=== PATIENT | female | born 1945 | race Caucasian/White ===

== ENCOUNTER 2016-07-07 07:58 | Day surgery (SDC) | payer MEDICARE, OTHER ==
[~2016-07-07 07:58] MED LIST: Acetaminophen TAB* 325 MG PO PRN; Buffered Lidocaine 1% SYRIN* 3 ML/SYR SYRINGE INTRADERM ONE; Cyclopentolate 1% OPTH.SOL* 2 ML BTL ONE; Flurbiprofen 0.03% OPTH.SOL* 2.5 ML BTL ONE; Lidocaine 1% MPF* 2 ML VIAL ONE; Neomycin/Polymy/Dex OPHTH.OIN* 3.5 GM ONE; Phenylephrine 2.5% OPTH.SOL* 2 ML BTL ONE; Povidone Iodine 5% OPTH* 30 ML BTL ONE; Tetracaine 0.5% OPTH.SOL 4 ML* 1 DROP BTL ONE; Tropicamide 1% OPTH.SOL* BTL ONE; acetaZOLAMIDE TAB* 250 MG ONE
[2016-07-07] MEDS ORDERED: fentaNYL* 50 MCG/ML 2 ML VIAL (100 MCG VIAL) ONE (09:22)
[2016-07-07] MEDS ORDERED: Midazolam* 1 MG/ML 2 ML VIAL (2 MG) ONE ×2 (09:22→09:38)
[2016-07-07] MEDS ORDERED: Labetalol IV* 5 MG/ML 20 ML VIAL ONE (09:48)
[2016-07-07 10:09] VITALS: BP 135/82
--- NOTE | 2016-07-08 05:02 | OP ---
DATE OF OPERATION: 07/07/16 - [facility] DATE OF : 45 SURGEON: Pop Jackson MD ANESTHESIOLOGIST: Niranjan Wayne DO ANESTHESIA: Monitored anesthesia care. PRE-OP DIAGNOSIS: Cataract of the right eye. POST-OP DIAGNOSIS: Cataract of the right eye. OPERATIVE PROCEDURE: Cataract extraction of the right eye. IMPLANTS: SN60AT 31.0 diopter lens to the right eye. COMPLICATIONS: None. DESCRIPTION OF PROCEDURE: The patient was given phenylephrine 2.5% and cyclopentolate 1% eyedrops to the operative eye in the preoperative area. The patient was brought to the operating room, where a time-out was taken to identify the correct patient, site, and side of the surgery. The patient's right eye was prepped and draped in the usual sterile fashion with 5% Betadine. A second time- out was taken to verify the correct patient, site, and side of the surgery and correct lens selection. A lid speculum was placed to the right eye. A 1 mm paracentesis blade was used to make a clear corneal incision in the superotemporal position. Preservative-free 1% lidocaine was injected into the anterior chamber. DisCoVisc was then injected in the anterior chamber. A 2.75 mm keratome blade was used to make a triplanar incision at the inferotemporal position. A cystotome was used to initiate a capsulorrhexis, which was completed with Utrata forceps in a continuous and curvilinear manner. Hydrodissection of the lens was then performed with BSS on a cannula. The lens could be spun in the capsular bag. The phacoemulsification handpiece was then used with a [id number] technique to remove the nucleus in its entirety with 10.74 CDE. The I/A handpiece was then used to remove the residual cortical lens material. DisCoVisc was then injected to inflate the capsular bag. The planned SN60AT 31.0 diopter lens was then injected into the capsular bag. The residual DisCoVisc was then removed from the eye with the I/A handpiece. The corneal incisions were then hydrated and no leaks occurred at physiologic pressure around 20 mmHg per palpation. The lid speculum was then removed and drapes removed. Maxitrol ointment was then placed on the surface of the operative eye. An adhesive patch and shield were then placed on the operative eye. The patient was taken to the postoperative area in stable condition. [id number]/[facility] #: [id number] [facility]ITALMichael
== END 2016-07-07 10:20 | disposition home or self-care (01) ==
LOC: OREAST 07:58
PROVIDERS: ATTEND Student in an Organized Health Care Education/Training Program
DX: H25.11 Age-related nuclear cataract, right eye (principal); E11.9 Type 2 diabetes mellitus without complications; H50.10 Unspecified exotropia; H53.032 Strabismic amblyopia, left eye; J44.9 Chronic obstructive pulmonary disease, unspecified; I10 Essential (primary) hypertension; Z87.891 Personal history of nicotine dependence
CPT/HCPCS: A9270-GY; J2250; J3010; V2632

== ENCOUNTER 2016-07-14 07:09 | Day surgery (SDC) | payer MEDICARE, OTHER ==
[~2016-07-14 07:09] MED LIST changes: -Cyclopentolate 1% OPTH.SOL* 2 ML BTL ONE; -Flurbiprofen 0.03% OPTH.SOL* 2.5 ML BTL ONE; -Lidocaine 1% MPF* 2 ML VIAL ONE; -Neomycin/Polymy/Dex OPHTH.OIN* 3.5 GM ONE; -Phenylephrine 2.5% OPTH.SOL* 2 ML BTL ONE; -Povidone Iodine 5% OPTH* 30 ML BTL ONE; -Tetracaine 0.5% OPTH.SOL 4 ML* 1 DROP BTL ONE; -Tropicamide 1% OPTH.SOL* BTL ONE; -acetaZOLAMIDE TAB* 250 MG ONE
[2016-07-14] MEDS ORDERED: Midazolam* 1 MG/ML 2 ML VIAL (2 MG) ONE ×2 (08:07→08:56)
[2016-07-14] MEDS ORDERED: fentaNYL* 50 MCG/ML 2 ML VIAL (100 MCG VIAL) ONE (08:12)
[2016-07-14 09:32] VITALS: BP 144/88
[2016-07-14] MEDS ORDERED: Phenylephrine 2.5% OPTH.SOL* 2 ML BTL ONE (14:47)
[2016-07-14] MEDS ORDERED: Lidocaine 1% MPF* 2 ML VIAL ONE (14:47)
[2016-07-14] MEDS ORDERED: acetaZOLAMIDE TAB* 250 MG ONE (14:47)
[2016-07-14] MEDS ORDERED: Tetracaine 0.5% OPTH.SOL 4 ML* 1 DROP BTL ONE (14:47)
[2016-07-14] MEDS ORDERED: Povidone Iodine 5% OPTH* 30 ML BTL ONE (14:47)
[2016-07-14] MEDS ORDERED: Neomycin/Polymy/Dex OPHTH.OIN* 3.5 GM ONE (14:47)
[2016-07-14] MEDS ORDERED: Cyclopentolate 1% OPTH.SOL* 2 ML BTL ONE (14:47)
[2016-07-14] MEDS ORDERED: Flurbiprofen 0.03% OPTH.SOL* 2.5 ML BTL ONE (14:47)
[2016-07-14] MEDS ORDERED: Tropicamide 1% OPTH.SOL* BTL ONE (14:47)
--- NOTE | 2016-07-15 00:59 | OP ---
DATE OF OPERATION: 07/14/16 - [facility] DATE OF : 45 SURGEON: Pop Jackson MD ANESTHESIOLOGIST: Dr. Holbrook ANESTHESIA: Monitored anesthesia care. PRE-OP DIAGNOSIS: Cataract, left eye with amblyopia. POST-OP DIAGNOSIS: Cataract, left eye with amblyopia. OPERATIVE PROCEDURE: Cataract extraction, left eye. IMPLANTS: SN60AT 33.0 diopter lens to the left eye. COMPLICATIONS: None. DESCRIPTION OF PROCEDURE: The patient was given phenylephrine 2.5% and cyclopentolate 1% eye drops to the operative eye in the preoperative area. The patient was brought to the operating room, where a time-out was taken to identify the correct patient, site, and side of the surgery. The patient's left eye was prepped and draped in the usual sterile fashion with 5% Betadine. A second time- out was taken to verify the correct patient, site, and side of the surgery and correct lens selection. A lid speculum was placed to the left eye. A 1 mm paracentesis blade was used to make a clear corneal incision in the inferotemporal position. Preservative-free 1% lidocaine was injected into the anterior chamber. DisCoVisc was then injected into the anterior chamber. A 2.75 mm keratome blade was used to make a triplanar incision at the superotemporal position. A cystotome was used to initiate a capsulorrhexis, which was completed with Utrata forceps in a continuous and curvilinear manner. Hydrodissection of the lens was then performed with BSS on a cannula. The lens could be spun in the capsular bag. The phacoemulsification handpiece was then used with a [id number] technique to remove the nucleus in its entirety with 15.29 CDE. The I/A handpiece was then used to remove the residual cortical lens material. DisCoVisc was then injected to inflate the capsular bag. The incision was enlarged to accommodate the B cartridge. The planned SN60AT 33.0 diopter lens was then injected into the capsular bag. The residual DisCoVisc was then removed from the eye with the I/A handpiece. The corneal incisions were then hydrated and no leaks occurred at physiologic pressure around 20 mmHg per palpation. The lid speculum was then removed and drapes removed. Maxitrol ointment was then placed on the surface of the operative eye. An adhesive patch and shield were then placed on the operative eye. The patient was taken to the postoperative area in stable condition. [id number]/[facility] [facility] #: [id number] PHILL
== END 2016-07-14 09:50 | disposition home or self-care (01) ==
LOC: OREAST 07:09
PROVIDERS: ATTEND Student in an Organized Health Care Education/Training Program
DX: H25.12 Age-related nuclear cataract, left eye (principal); H53.032 Strabismic amblyopia, left eye; H50.10 Unspecified exotropia; J44.9 Chronic obstructive pulmonary disease, unspecified; E11.9 Type 2 diabetes mellitus without complications; Z87.891 Personal history of nicotine dependence; I10 Essential (primary) hypertension
CPT/HCPCS: A9270-GY; J2250; J3010; V2632

== ENCOUNTER 2016-10-27 12:46 | Emergency (ER) | payer MEDICARE, OTHER ==
[2016-10-27] MEDS ORDERED: Metoclopramide IV* 5 MG/ML 2 ML VIAL IV ONE (14:34)
[2016-10-27] MEDS ORDERED: NS 0.9% 1000 ML* 1,000 ML IV ONE (14:34)
--- NOTE | 2016-10-27 14:57 | RAD ---
HISTORY: Lower abdominal pain COMPARISONS: None VIEWS: Frontal views of the abdomen. FINDINGS: BOWEL: There is a nonobstructive bowel gas pattern. There is a moderate amount of stool within the colon. CALCULI: There are no abnormal calculi. BONES AND SOFT TISSUES: The patient is status post spinal fusion. OTHER FINDINGS: The lung bases are clear. There is no subphrenic gas. IMPRESSION: NONOBSTRUCTIVE BOWEL GAS PATTERN
[2016-10-27 15:42] LABS: Hematocrit 32 % (35-47); Hemoglobin 10.4 g/dl (12.0-16.0); Mean Corpuscular HGB Conc 33 g/dl (31-36); Mean Corpuscular Hemoglobin 25 pg (27-31); Mean Corpuscular Volume 77 fL (80-97); Mean Platelet Volume 7 um3 (7.4-10.4); Red Blood Count 4.13 10^6/ul (4.0-5.4); Red Cell Distribution Width 19 % (10.5-15); White Blood Count 7.7 10^3/ul (3.5-10.8)
[2016-10-27 16:16] LABS: Albumin 3.3 g/dL (3.2-5.2); BUN/Creatinine Ratio 7.7 (8-20); C Reactive Protein 15.3 mg/L (< 5.00); Calcium 8.8 mg/dL (8.6-10.3); EGFR African American 78.4 (>60); EGFR Non-African American 60.9 (>60); Globulin 3.3 g/dL (2-4); Potassium 3.1 mmol/L (3.5-5.0); Total Bilirubin 0.5 mg/dL (0.2-1.0); Total Protein 6.6 g/dL (6.4-8.9)
[2016-10-27] MEDS ORDERED: KCL 20 MEQ/100 ML IVPREMIX* 20 MEQ/100 ML BAG IV ONE (16:29)
[2016-10-27 17:29] LABS: Urine Bacteria 1+ (Absent); Urine Bilirubin Negative (Negative); Urine Glucose Negative (Negative); Urine Nitrite Negative (Negative)
[2016-10-27 19:07] VITALS: BP 166/106
--- NOTE | 2016-10-28 20:11 | ED ---
Taina Vásquez Edward, scribed for Eduardo Young MD on 10/27/16 at 1353 . Complex/Multi-Sys Presentation - HPI Summary HPI Summary: 71 y/o female presents to ED c/o gradual onset ABD pain and nausea for the past two weeks since leaving the hospital. SHx back surgery ([facility] 09/23/16). The pain is described as a stomach ache. The nausea is not alleviated with nausea medicine. Associated sx: diaphoretic, lightheadedness, decreased appetite, weakness in the feet due to dropped foot s/p surgery. Denies problems with bowel movements. PMHx gout, dropped foot. - History Of Current Complaint Chief Complaint: EDNauseaVomitDiarrh Hx Obtained From: Patient Onset/Duration: Gradual Onset, Lasting Weeks - 2, Still Present Location: Pain At: - Diffuse ABD Character: Dull - Ache Associated Signs And Symptoms: Positive: Weakness - in both feet due to dropped foot s/p surgery, Nausea, Decreased Oral Intake, Diaphoresis, Other - Lightheaded - Allergies/Home Medications Allergies/Adverse Reactions: Allergies Allergy/AdvReac Type Severity Reaction Status Date / Time Codeine Allergy Severe Hives Verified 10/27/16 12:48 PMH/Surg Hx/FS Hx/Imm Hx Previously Healthy: No Endocrine/Hematology History: Denies: Hx Diabetes, Hx Thyroid Disease Cardiovascular History: Reports: Hx Hypertension Denies: Hx Congestive Heart Failure, Hx Pacemaker/ICD, Other Cardiovascular Problems/Disorders Respiratory History: Reports: Hx Chronic Obstructive Pulmonary Disease (COPD), Other Respiratory Problems/Disorders - pleurisy, once; bronchitis once. Denies: Hx Asthma, Hx Pneumonia GI History: Reports: Hx Gastroesophageal Reflux Disease, Other GI Disorders - ulcerative colitis History: Reports: Other Problems/Disorders - overactive bladdder Denies: Hx Renal Disease Musculoskeletal History: Reports: Hx Arthritis, Hx Back Problems - sx for disc, spinal stenosis Sensory History: Reports: Hx Cataracts - bilat, Hx Contacts or Glasses, Hx Glaucoma - mild Denies: Hx Deafness, Hx Hearing Aid Opthamlomology History: Reports: Hx Cataracts - bilat, Hx Contacts or Glasses, Hx Glaucoma - mild Neurological History: Denies: Hx CVA, Hx Migraine, Hx Seizures, Hx Transient Ischemic Attacks (TIA) Psychiatric History: Reports: Hx Anxiety, Hx Depression - for a year after 's , Hx Substance Abuse - tobacco Denies: Hx Panic Disorder - Surgical History Surgery Procedure, Year, and Place: LOW BACK SURGERY 2011(2 SURGERIES 1 DAY APART), WRIST NERVE DAMAGE, FOREIGN OBJECT IN FOOT(TOOTHPICK) Hx Anesthesia Reactions: No Infectious Disease History: Denies: Traveled Outside the [place] in Last 30 Days - Family History Known Family History: Positive: Other - Strabismus, cataract - Social History Alcohol Use: None Hx Substance Use: No Substance Use Type: Reports: None Hx Tobacco Use: Yes Smoking Status (MU): Current Every Day Smoker Type: Cigarettes Amount Used/How Often: 1.5 ppd Length of Time of Smoking/Using Tobacco: 29 years Have You Smoked in the Last Year: Yes Review of Systems Positive: Skin Diaphoresis Eyes: Negative ENT: Negative Cardiovascular: Negative Respiratory: Negative Positive: Abdominal Pain, Nausea, Other - Decreased appetite Genitourinary: Negative Musculoskeletal: Negative Skin: Negative Positive: Weakness - in feet s/p surgery Psychological: Normal All Other Systems Reviewed And Are Negative: Yes Physical Exam Triage Information Reviewed: Yes Vital Signs On Initial Exam: Initial Vitals Temp Pulse Resp BP Pulse Ox 98.1 F 78 16 125/97 97 10/27/16 12:48 10/27/16 12:48 10/27/16 12:48 10/27/16 12:48 10/27/16 12:48 Vital Signs Reviewed: Yes Appearance: Positive: Well-Appearing, No Pain Distress Skin: Positive: Warm, Skin Color Reflects Adequate Perfusion, Dry Head/Face: Positive: Normal Head/Face Inspection Eyes: Positive: Normal ENT: Positive: Normal ENT inspection Neck: Positive: Supple, Nontender Respiratory/Lung Sounds: Positive: Clear to Auscultation, Breath Sounds Present Cardiovascular: Positive: RRR Abdomen Description: Positive: Soft, Other: - Diffuse mild tenderness Bowel Sounds: Positive: Hypoactive Musculoskeletal: Positive: Normal Neurological: Positive: Normal Psychiatric: Positive: Normal, Affect/Mood Appropriate Diagnostics - Vital Signs Vital Signs Temp Pulse Resp BP Pulse Ox 10/27/16 12:48 98.1 F 78 16 125/97 97 - Laboratory Lab Results: Lab Results 10/27/16 10/27/16 10/27/16 Range/Units 15:30 15:30 17:05 WBC 7.7 (3.5-10.8) 10^3/ul RBC 4.13 (4.0-5.4) 10^6/ul Hgb 10.4 L (12.0-16.0) g/dl Hct 32 L (35-47) % MCV 77 L (80-97) fL MCH 25 L (27-31) pg MCHC 33 (31-36) g/dl RDW 19 H (10.5-15) % Plt Count 589 H (150-450) 10^3/ul MPV 7 L (7.4-10.4) um3 Neut % (Auto) 57.6 (38-83) % Lymph % (Auto) 23.9 L (25-47) % [place] % (Auto) 13.5 H (1-9) % Eos % (Auto) 4.0 (0-6) % Baso % (Auto) 1.0 (0-2) % Absolute Neuts (auto) 4.4 (1.5-7.7) 10^3/ul Absolute Lymphs (auto) 1.8 (1.0-4.8) 10^3/ul Absolute Monos (auto) 1.0 H (0-0.8) 10^3/ul Absolute Eos (auto) 0.3 (0-0.6) 10^3/ul Absolute Basos (auto) 0.1 (0-0.2) 10^3/ul Absolute Nucleated RBC 0.01 10^3/ul Nucleated RBC % 0.1 Sodium 135 (133-145) mmol/L Potassium 3.1 L (3.5-5.0) mmol/L Chloride 99 L (101-111) mmol/L Carbon Dioxide 28 (22-32) mmol/L Anion Gap 8 (2-11) mmol/L BUN 7 (6-24) mg/dL Creatinine 0.91 (0.51-0.95) mg/dL Est GFR ( Amer) 78.4 (>60) Est GFR (Non-Af Amer) 60.9 (>60) BUN/Creatinine Ratio 7.7 L (8-20) Glucose 113 H (70-100) mg/dL Calcium 8.8 (8.6-10.3) mg/dL Total Bilirubin 0.50 (0.2-1.0) mg/dL AST 34 (13-39) U/L ALT 22 (7-52) U/L Alkaline Phosphatase 90 (34-104) U/L C-Reactive Protein 15.30 H (< 5.00) mg/L Total Protein 6.6 (6.4-8.9) g/dL Albumin 3.3 (3.2-5.2) g/dL Globulin 3.3 (2-4) g/dL Albumin/Globulin Ratio 1.0 (1-3) Urine Color Yellow Urine Appearance Cloudy Urine pH 6.0 (5-9) Ur Specific [place] 1.004 L (1.010-1.030) Urine Protein Negative (Negative) Urine Ketones Negative (Negative) Urine Blood Negative (Negative) Urine Nitrate Negative (Negative) Urine Bilirubin Negative (Negative) Urine Urobilinogen Negative (Negative) Ur Leukocyte Esterase 3+ H (Negative) Urine WBC (Auto) 2+(11-20/hpf) H (Absent) Urine RBC (Auto) Absent (Absent) Ur Squamous Epith Cells Present H (Absent) Urine Bacteria 1+ H (Absent) Urine Glucose Negative (Negative) Result Diagrams: 10/27/16 15:30 10/27/16 15:30 Lab Statement: Any lab studies that have been ordered have been reviewed, and results considered in the medical decision making process. - Radiology ABD XR Xray Interpretation: No Acute Changes - NONOBSTRUCTIVE BOWEL GAS PATTERN Radiology Interpretation Completed By: Radiologist Complex Multi-Symp Course/Dx Course Of Treatment: Ms. Bond came in C/O N/V and "an old fashioned stomache ache" for a couple of days. She has been taking narcotic secondary to a recent procedure but says she has been moving her bowels OK. She was given Zofran ODT by her PMD but it's not helping. Her W/U was OK here and she felt better with Reglan. Her K was a bit low and this was replaced. - Diagnoses Provider Diagnoses: Nausea, Hypokalemia Discharge - Discharge Plan Condition: Stable Disposition: HOME Prescriptions: Prochlorperazine TAB* [Compazine Tab*] 10 mg PO Q6H PRN #20 tab PRN Reason: Nausea/Vomiting Patient Education Materials: Hypokalemia (ED) Referrals: Lew Mcmansu MD [Primary Care Provider] - 3 Days (Please f/u in 2-3 days) The documentation as recorded by the Taina durant Edward accurately reflects the service I personally performed and the decisions made by me, Eduardo Young MD.
== END 2016-10-27 19:06 | disposition home or self-care (01) ==
LOC: ED 12:46
DX: R11.0 Nausea (principal); E87.6 Hypokalemia; R53.1 Weakness; R42 Dizziness and giddiness; R61 Generalized hyperhidrosis; I10 Essential (primary) hypertension; J44.9 Chronic obstructive pulmonary disease, unspecified; K21.9 Gastro-esophageal reflux disease without esophagitis; F41.9 Anxiety disorder, unspecified; F32.9 Major depressive disorder, single episode, unspecified; Z88.5 Allergy status to narcotic agent; F17.210 Nicotine dependence, cigarettes, uncomplicated
CPT/HCPCS: 36415; 74000; 80053; 81003; 81015; 85025; 86140; 87086; 96361; 96365; 96366; 96375; 99283; J2765; J3480

== ENCOUNTER 2018-03-29 11:59 | Observation (INO) | payer MEDICARE, OTHER ==
--- OUTSIDE RECORDS SUMMARY | 2018-03-29 12:36 | XMS REPORT ---
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 PayID: [id number] [place] [address] Problems Date Description Provider Status Onset: 08/01/2011 Eruption Lew Mcmanus M.D. Active Onset: 08/01/2011 Malaise and fatigue Lew Mcmanus M.D. Active Onset: 11/24/2012 Backache Lew Mcmanus M.D. Active Onset: 04/30/2015 Tietze's disease Lew Mcmanus M.D. Active Onset: 05/07/2015 Joint pain Lew Mcmanus M.D. Active Onset: 05/07/2015 Type 2 diabetes mellitus Lew Mcmanus M.D. Active Onset: 05/07/2015 Epigastric pain Lew Mcmanus M.D. Active Onset: 05/07/2015 Shoulder joint pain Lew Mcmanus M.D. Active Onset: 05/16/2015 Sciatica Lew Mcmanus M.D. Active Onset: 06/20/2015 Chronic obstructive lung disease Lew Mcmanus M.D. Active Onset: 06/20/2015 Acute upper respiratory infection, Lew Mcmanus M.D. Active unspecified Onset: 2015 Low back pain Lew Mcmanus M.D. Active Onset: 10/28/2016 Gout Lew Mcmanus M.D. Active Onset: 10/28/2016 Herpes zoster without complication Lew Mcmanus M.D. Active Onset: 12/31/2016 Nausea Lew Mcmanus M.D. Active Onset: 12/31/2016 Vomiting, unspecified Lew Mcmanus M.D. Active Onset: 06/03/2017 Foot-drop Lew Mcmanus M.D. Active Onset: 12/07/2017 Insomnia Lew Mcmanus M.D. Active Onset: 12/07/2017 Encounter for exam and observation Lew Mcmanus M.D. Active following work accident Family History Date Family Member(s) Problem(s) Comments Father Suicide Mother Ascvd Social History Type Date Description Comments Cigarette Use Current Cigarette Smoker 1 PPD, TRYING TO QUIT--QUTI FOR 17 YRS IN PAST QUIT AGAIN FOR 1 YEAR Smoking Patient is a former smoker Allergies, Adverse Reactions, Alerts Date Description Reaction Status Severity Comments Codeine active Medications Medication Date Status Form Strength Qnty SIG Indications Ordering Provider Augmentin 03/12 Active Tablets 875-125mg 20tab take one J02.9 Kimberly Marisabel s tablet by ABHIJIT Workman mouth twice a day Trospium 12/08 Active Tablets 20mg 180ta use twice a Kimberly Marisabel Chloride bs day for ABHIJIT Workman bladder Lyrica 08/03 Active Capsules 50mg 270ca 1 by mouth Lew Castellon ps three times Breiman, a day mdd 3 M.D. m54.5 Onetouch Lancets 12/02 Active Misc 100un test blood Lew Castellon its sugar bid Breiman, DX: E11.9 M.D. Last appt 12/02/16 Onetouch Ultra 12/02 Active Strips 100un use as Lew Lu its directed Breiman, twice a day M.DCarla Dx: E11.9 Last appt 12/02/16 Omeprazole 05/07 Active Capsules 20mg 30cap 1 by mouth Lew Castellon /2015 s every day Philip Mcmanus Triamterene/Hydr 12/11 Active Capsules 37.5-25mg 90cap Take 1 Lew Castellon ochlorothiazide /2010 s Capsule By Yonathan, Mouth M.DCarla Daily Centrum Silver 12/05 Active 1 PO qd Family Vitamins /2003 [facility] Apriso Active Caps ER 0.375gm 4 tab by 24HR mouth every day Zyrtec Allergy Active Tablets 10mg 1 by mouth every day Lialda Active Tablets 1.2gm take 2 DR tablets every day Oxycodone HCL Active Tablets 15mg 60tab 1 by mouth Lew Castellon / s every 4-6 neeraj Mcmanus as Philip needed pain Trospium 12/08 Hx Tablets 20mg 90tab take 1 Lew Brambila /2017 s tablet by Yonathan, - mouth daily M.D. 12/08 Right Foot 08/03 Hx needs Lew Castellon Bralaura /2017 right foot Quincy Mcmanus brace for M.D. 12/07 foot drop[ /2017 Physical Therapy 08/03 Hx treatment Lew Castellon /2017 and Yonathan - evaluation M.D. 12/07 for right /2018 foot drop Medrol 06/03 Hx TBPK 4mg 1unit use as Lew Castellon /2017 s directed Quincy Mcmanus M.D. 08/03 Physical Therapy 01/21 Hx treatment Lew Castellon /2016 and Yonathan - evaluation M.D. 06/03 low back /2017 pain Trospium 12/12 Hx Tablets 20mg 90tab take 1 Lew Castellon Chloride /2016 s tablet by Yonathan, - mouth daily M.D. 12/12 Trospium 12/12 Hx Tablets 20mg 14tab Take 1 Lew Castellon Chloride /2016 s tablet by Yonathan, - mouth daily M.D. 12/12 Medrol 12/12 Hx TBPK 4mg 1unit use as Lew Castellon /2016 s directed Quincy Mcmanus M.D. 12/12 Sanctura 12/12 Hx Tablets 20mg 60tab use twice a Lew Castellon s day Quincy McmanusDCarla 12/08 Metformin HCL ER 12/02 Hx Tablets 500mg 60tab 1 pill a Lew Castellon (Mod) ER 24HR s day for Yonathan, - diabetes M.D. 12/31 Ambien 12/02 Hx Tablets 10mg 30tab take 1 Shobha s tablets by Lacy, - mouth every [employer] 08/03 night at bedtime as needed for sleep Colchicine 11/08 Hx Tablets 0.6mg 30tab use twice a s day to [place], - three times M.D. 12/02 a day gout Prednisone 10/28 Hx Tablets 20mg 18tab 3 x 3 days Carla s 2 x 3 days Yonathan, - 1 x 3 days M.D. 11/12 Zofran Odt 10/24 Hx Tablets 4mg 10tab 1- every Eugene A Dispers s 4-6h as Darlow, - needed M.D. 06/03 nausea Prozac 06/30 Hx Capsules 20mg 30cap 1 by mouth F41.9 Lew Castellon s every day Quincy Mcmanus.DCarla 12/31 Flexeril 06/20 Hx Tablets 10mg 30tab 1 by mouth Lew Castellon s every night Yonathan, - at bedtime M.DCarla 12/31 for muscle spasm Colchicine 06/20 Hx Tablets 0.6mg 30tab use twice a Lew Castellon s day to Yonathan, - three times M.D. 10/28 a day for gout Physical Therapy 01/29 Hx treatment Lew Ravinder and Yonathan, - evaluation M.D. 06/20 low back pain Gabapentin 01/29 Hx Capsules 100mg 60cap take one Lew Castellon s capsule by Yonathan, - mouthtwice M.D. 06/20 a day Spiriva 07/10 Hx Capsules 18mcg 30cap inhale the Lew Castellon Handlinh s contents of Yonathan, - one capsule M.D. 06/20 in the handihaler once daily Symbicort 07/10 Hx Aerosol 160-4.5mc 6gm 1 puff A Lew Castellon /2015 g/Act Quincy Mcmanus M.DCarla 08/03 Oxygen Therapy 06/19 Hx needs o2 J44.9 Lew Castellon /2015 study Yonathan - nighttime M.D. 12/12 oximetry test to check levels. dx j44.9 Oxygen Therapy 06/14 Hx 1unit use as Lew Castellon Conserving s directed Yonathan Device - M.DCarla 12/12 Tamiflu 06/03 Hx Capsules 75mg 10cap use twice a Lew Castellon s day x 5 Yonathan - days M.D. 07/10 Proctosol HC 05/15 Hx Cream 2.5% 28.35 apply up to Lew Castellon 0gm four times Yonathan, - daily as M.D. 06/03 Azithromycin 03/15 Hx Tablets 500mg 10tab 1 po x 5 466.0 Nova /2013 s days Graham, - [employer] 05/13 Proair HFA 03/15 Hx Aerosol 108(90Bas 1unit 2 puffs tid 786.2 Nova /2013 e) s x 2 weeks Graham, - mcg/Act [employer] 04/30 Zithromax Z-Bala 03/10 Hx Tablets 250mg 1Pack as directed Lew Castellon Quincy Mcmanus M.DCarla 03/15 Hydrocodone/Acet 12/28 Hx Tablets 5-325mg 50tab 1 po qid Lew Castellon aminophen /2012 s prn pain Yonathan - dt M.DCarla 03/04 Valium 12/14 Hx Tablets 5mg 5tabs 1po prior Lew Castellon to Yonathan - procedure M.D. 03/10 dt Ibuprofen 11/24 Hx Tablets 600mg 90tab take one Lew Castellon s tablet by Yonathan - mouth three M.D. 05/13 times a day /2014 as needed Lisinopril 06/30 Hx Tablets 10mg 90tab Take 1 Lew Castellon s Tablet Breiman, - Daily M.D. 05/13 Azithromycin 05/04 Hx Tablets 500mg 5tabs 1 po qd x 5 466.0 Darlene Quincy Pat 05/08 Benzonatate 05/04 Hx Capsules 200mg 30cap 1 po tid 466.0 Nova s prn for Graham, - cough [employer] 05/13 Nicotrol Inhaler 08/04 Hx Inhaler 10mg 1unit use as Lew Castellon s needed Quincy Mcmanus M.D. 04/30 Atenolol 11/19 Hx Tablets 50mg 90tab Take 1 Lew Castellon s Tablet By Yonathan - Mouth M.DCarla 02/11 Tramadol HCL 06/03 Hx Tablets 50mg 100ta 1 po q4-6 Lew Castellon bs hrs prn Quincy Mcmanus M.D. 05/04 Wellbutrin 06/03 Hx Tablets 75mg 60tab 1 po bid Lew Castellon s Quincy Mcmanus M.D. 05/04 Mercaptopurine 10/12 Hx Tablets 50mg 1 1/2 po qd [facility] 06/03 Of Fish Oil 10/12 Hx Capsules 1000mg 1 po qd [facility] 05/04 Ultracet 11/15 Hx Tablets 50tab 1 po q4hrs Lew Castellon s to 6 hours Quincy Mcmanus prn pain M.Brennan 06/03 dt Asacol 08/15 Hx Tablets 400mg 3 po tid Quincy Alvarenga 05/13 Augmentin 08/15 Hx Tablets 875mg 20tab 1 po bid x s 10 days Quincy Lee 08/25 with food Sanctura 05/22 Hx Tablets 20mg 180ta 1 by mouth Lew Castellon bs every day Quincy Mcmanus M.D. 12/12 Asacol 05/22 Hx Tablets 400mg 3 po tid [facility] 09/14 [facility] [place] Prednisone 05/22 Hx Tablets 10mg 30tab 4 PO qd s [facility] 08/15 Of Medrol Dosepak 06/03 Hx Tablets 4mg 1tabs Lew Castellon /2007 Quincy Mcmanus M.D. 05/22 Note 05/01 Hx needs labs: cm,cbc,T2,T Jesus, - SH,lipids Afnp-C 05/22 Mucofen DM 12/05 Hx 100Omg 90uni 1 bid Lew Castellon Quincy Gonzalez M.D. 05/22 Calcium With Vit 12/05 Hx 600mg 1 bid [facility] 12/12 [facility] [place] Medrol Dosepack 10/13 Hx 4mg 1unit as directed Madhu Michelle /2002 s Quincy Onofre M.D. 12/05 Darvocet N 100 10/13 Hx 100mg/65O 40uni 1 qid prn Madhu Michelle With Apap ts Quincy Weller M.D. 05/22 Clarinex 07/06 Hx 90uni 1 qd prn Lew Castellon /2002 Quincy Gonzalez M.D. 05/13 Work 09/22 Hx Back To Lew Castellon Recommendations /2001 Work Yonathan - 10/06/01 Philip 10/13 Darvocet N 100 07/21 Hx 100mg 30uni 1 qid prn Lew Castellon With Apap Quincy Joseph M.D. 10/13 Work Excuse 07/19 Hx No Work For Lew Castellon /2001 3 Weeks Quincy Mcmanus M.D. 10/13 Work Excuse 05/13 Hx May Return Eugene Aquino /2001 To Work Ben, - 05/18/01 Philip 05/18 Tequin 05/11 Hx 400mg 10uni 1 PO qd Eugene Aquino /2001 Quincy Davis M.D. 05/21 Duratuss G 05/11 Hx 20uni Take One Eugene Aquino /2001 ts Quincy Engel M.D. 05/21 Valtrex 11/03 Hx 500mg. 20uni 1 Tab bid Shobha /2000 ts For 5 Days Lacy - [employer] 11/08 Humabid LA 04/13 Hx 180un 1 po bid Lew Castellon /2000 its prn Yonathan - M.DCarla 10/13 Claritin 04/25 Hx 10mg 90uni 1 qd Lew Castellon /1999 ts Yonathan - M.DCarla 07/06 Return To Work 04/16 Hx May Return Lew Castellon /1999 To Work Yonathan - M.DCarla 08/0504/23/99 Xenical 03/08 Hx Tabs 120mg 90tab 1 PO Prior Lew Castellon /1998 s To Meals Yonathan, - tid M.D. 08/10 Keflex 02/25 Hx 250mg 21uni 1 PO tid X Lew Castellon /1998 ts 7 Days Yonathan - M.D. 08/05 Bactroban 02/25 Hx Apply tid Lew Castellon /1998 Yonathan - M.D. 08/05 Zovirax 08/21 Hx 45gm Apply Lew Castellon /1998 qid-5Times Yonathan, - Per Day M.D. 05/22 Prempro 10/11 Hx 0.625/2.5 90uni 1 po qd Lew Castellon /1997 ts Yonathan - M.D. 05/22 Dyazide 09/08 Hx 37.5/25 90uni 1 po qd Lew Castellon /1997 ts Yonathan - M.D. 03/10 Demulen 1/35 06/05 Hx 1unit Lew Castellon /1997 s Yonathan - M.DCaral 10/11 Keflex 04/19 Hx 5Oomg 30uni 1 Tablet Lew Castellon /1997 ts Three Times Yonathan, - A Day. M.D. 06/05 Keflex 03/25 Hx 5Oomg 20uni 1 PO bid Lew Castellon /1997 ts Quincy Mcmanus M.DCarla 06/05 Tenormin 10/05 Hx Tablets 50mg 90tab 1qd Lew Castellon /1996 s Yonathan - M.DCarla 05/04 Guaifenesin CR 10/05 Hx 600mg 120un 2 PO bid Lew Castellon /1996 its Yonathan - M.D. 04/13 Rhinocort Aqua 10/05 Hx Inhaler 3unit use as Lew Castellon /1997 s directed Quincy Mcmanus M.D. 03/10 Entocort Ec Hx Caps ER 3mg Ir[place], /0000 24HR Rubio MOLINA - 12/12 Vitamin D 00 Hx Capsules 400Unit 30cap 1 po qd Unknown /0000 s - 03/04 Prednisone 00 Hx Tablets 5mg 78tab taper for Unknown /0000 s collitis - 03/10 Vitamin A 00/00 Hx Capsules 8000Unit Unknown /0000 - 05/13 Prednisone 00/00 Hx Tablets 10mg taper - Dr Unknown /0000 Mahamed - 05/13 [place] 3 Hx Capsules 1 by mouth Unknown /0000 every day - 12/12 Oxycodone HCL Hx Tablets 5mg 1-2 four Unknown /0000 times a day - as needed 12/12 Prednisone Hx Tablets 20mg 12tab 2 a day for Lew Castellon / s 4 days then Yonathan, - 1 a day for M.Brennan 07/10 /2015 Metformin HCL 00 Hx Tablets 500mg 1 by mouth Unknown /0000 daily - 10/14 Oxycontin 00 Hx Tab ER 10mg 60tab 1 tablet Lew Ravinder / 12H s once or Yonathan, - Abuse-Det twice a day M.D. 06/03 Immunizations CPT Code Status Date Vaccine Lot # [id number] Given 12/23/2017 Influenza Vac, Quadriv[place], [place] [address] Given 12/31/2016 High-Dose, Influenza Virus Vacccine-fluzone 65 and [id number] older 16140 Given 12/12/2015 High-Dose, Influenza Virus Vacccine-fluzone 65 and older 68409 Given 12/26/2014 Pneumococcal Conjugate Vacc-13 31081 Given 12/06/2014 Zostivax 40622 Given 12/06/2014 Zostivax 06067 Given 12/06/2014 High-Dose, Influenza Virus Vacccine-fluzone 65 and older 27559 Given 12/22/2012 DO Not Use Split Influenza Virus Vaccine 76712 Given 12/08/2011 DO Not Use Split Influenza Virus Vaccine 48981 Given Unknown High-Dose, Influenza Virus Vacccine-fluzone 65 and older Vital Signs Date Vital Result Comment 03/12/2018 BP Systolic 132 mmHg BP Diastolic 84 mmHg Heart Rate 92 /min Body Temperature 97.5 F Respiratory Rate 17 /min Height 63 inches 5'3" Weight 151.00 lb BMI (Body Mass Index) 26.7 kg/m2 12/07/2017 BP Systolic 142 mmHg BP Diastolic 82 mmHg Heart Rate 96 /min Body Temperature 98.2 F Height 63 inches 5'3" Weight 151.00 lb BMI (Body Mass Index) 26.7 kg/m2 08/03/2017 BP Systolic 122 mmHg BP Diastolic 70 mmHg Heart Rate 72 /min Body Temperature 97.7 F Respiratory Rate 16 /min Height 63 inches 5'3" Weight 139.00 lb BMI (Body Mass Index) 24.6 kg/m2 06/03/2017 BP Systolic 124 mmHg BP Diastolic 82 mmHg Heart Rate 82 /min Body Temperature 97.3 F Respiratory Rate 16 /min Height 63 inches 5'3" Weight 130.00 lb BMI (Body Mass Index) 23.0 kg/m2 04/24/2017 BP Systolic 116 mmHg BP Diastolic 82 mmHg Heart Rate 77 /min Body Temperature 97.5 F Respiratory Rate 16 /min Height 63 inches 5'3" Weight 133.00 lb BMI (Body Mass Index) 23.6 kg/m2 04/13/2017 BP Systolic 110 mmHg BP Diastolic 78 mmHg Heart Rate 84 /min Body Temperature 98.3 F Respiratory Rate 17 /min Height 63 inches 5'3" Weight 135.25 lb BMI (Body Mass Index) 24.0 kg/m2 03/04/2017 BP Systolic 138 mmHg BP Diastolic 78 mmHg Heart Rate 88 /min Body Temperature 97.5 F Height 63 inches 5'3" Weight 142.00 lb BMI (Body Mass Index) 25.2 kg/m2 02/11/2017 BP Systolic 116 mmHg BP Diastolic 84 mmHg Heart Rate 90 /min Body Temperature 97.3 F Height 63 inches 5'3" Weight 153.00 lb BMI (Body Mass Index) 27.1 kg/m2 01/21/2017 BP Systolic 98 mmHg BP Diastolic 70 mmHg Heart Rate 84 /min Body Temperature 97.6 F Height 64 inches 5'4" Weight 153.25 lb BMI (Body Mass Index) 26.3 kg/m2 12/31/2016 BP Systolic 112 mmHg BP Diastolic 72 mmHg Heart Rate 78 /min Body Temperature 98.8 F Height 64 inches 5'4" 12/12/2016 BP Systolic 132 mmHg BP Diastolic 80 mmHg Heart Rate 68 /min Body Temperature 97.3 F Respiratory Rate 16 /min Height 64 inches 5'4" Weight 160.00 lb BMI (Body Mass Index) 27.5 kg/m2 12/02/2016 BP Systolic 118 mmHg BP Diastolic 78 mmHg Heart Rate 74 /min Body Temperature 97.3 F Height 64 inches 5'4" Weight 164.25 lb BMI (Body Mass Index) 28.2 kg/m2 11/12/2016 BP Systolic 138 mmHg BP Diastolic 72 mmHg Heart Rate 68 /min Body Temperature 97.6 F Height 64 inches 5'4" Weight 174.00 lb BMI (Body Mass Index) 29.9 kg/m2 10/28/2016 BP Systolic 132 mmHg BP Diastolic 80 mmHg Heart Rate 84 /min Body Temperature 97.5 F Height 64 inches 5'4" Weight 175.00 lb BMI (Body Mass Index) 30.0 kg/m2 08/25/2016 BP Systolic 130 mmHg BP Diastolic 88 mmHg Heart Rate 84 /min Body Temperature 98.4 F Respiratory Rate 18 /min Height 64 inches 5'4" Weight 184.00 lb BMI (Body Mass Index) 31.6 kg/m2 06/30/2016 BP Systolic 132 mmHg BP Diastolic 90 mmHg Heart Rate 80 /min Respiratory Rate 18 /min Height 64 inches 5'4" Weight 191.25 lb BMI (Body Mass Index) 32.8 kg/m2 06/20/2016 BP Systolic 120 mmHg BP Diastolic 70 mmHg Heart Rate 80 /min Body Temperature 98.2 F Respiratory Rate 18 /min Height 64 inches 5'4" Weight 191.00 lb BMI (Body Mass Index) 32.8 kg/m2 01/30/2016 BP Systolic 132 mmHg BP Diastolic 74 mmHg Heart Rate 68 /min Body Temperature 96.9 F Respiratory Rate 18 /min Height 64 inches 5'4" Weight 184.00 lb BMI (Body Mass Index) 31.6 kg/m2 10/15/2015 BP Systolic 130 mmHg BP Diastolic 74 mmHg Heart Rate 64 /min Body Temperature 96.4 F Respiratory Rate 20 /min O2 % BldC Oximetry 97 % Height 64 inches 5'4" Weight 185.00 lb BMI (Body Mass Index) 31.8 kg/m2 2015 BP Systolic 130 mmHg BP Diastolic 80 mmHg Heart Rate 64 /min Body Temperature 97.6 F Respiratory Rate 20 /min O2 % BldC Oximetry 98 % Height 64 inches 5'4" Weight 185.00 lb BMI (Body Mass Index) 31.8 kg/m2 07/11/2015 BP Systolic 136 mmHg BP Diastolic 74 mmHg Heart Rate 66 /min Body Temperature 97.9 F Respiratory Rate 20 /min O2 % BldC Oximetry 96 % Height 64 inches 5'4" Weight 180.00 lb BMI (Body Mass Index) 30.9 kg/m2 06/20/2015 BP Systolic 124 mmHg BP Diastolic 62 mmHg Heart Rate 68 /min Body Temperature 97.5 F Respiratory Rate 18 /min O2 % BldC Oximetry 98 % Height 64 inches 5'4" Weight 182.00 lb BMI (Body Mass Index) 31.2 kg/m2 06/04/2015 BP Systolic 140 mmHg BP Diastolic 74 mmHg Heart Rate 74 /min Body Temperature 100.9 F Respiratory Rate 22 /min O2 % BldC Oximetry 90 % Height 64 inches 5'4" Weight 182.00 lb BMI (Body Mass Index) 31.2 kg/m2 05/16/2015 BP Systolic 130 mmHg BP Diastolic 80 mmHg Heart Rate 64 /min Body Temperature 97.4 F Respiratory Rate 20 /min Height 64 inches 5'4" 05/07/2015 BP Systolic 148 mmHg BP Diastolic 84 mmHg Heart Rate 80 /min Body Temperature 97.9 F Respiratory Rate 18 /min Height 64 inches 5'4" Weight 183.00 lb BMI (Body Mass Index) 31.4 kg/m2 04/30/2015 BP Systolic 150 mmHg BP Diastolic 90 mmHg Heart Rate 64 /min Body Temperature 97.2 F Respiratory Rate 20 /min Height 64 inches 5'4" Weight 187.00 lb BMI (Body Mass Index) 32.1 kg/m2 05/13/2014 BP Systolic 120 mmHg BP Diastolic 74 mmHg Heart Rate 72 /min Body Temperature 96.1 F Respiratory Rate 16 /min Height 64 inches 5'4" Weight 192.25 lb BMI (Body Mass Index) 33.0 kg/m2 05/12/2013 BP Systolic 120 mmHg BP Diastolic 80 mmHg Heart Rate 80 /min Body Temperature 97.4 F Respiratory Rate 20 /min Height 64 inches 5'4" Weight 181.00 lb BMI (Body Mass Index) 31.1 kg/m2 03/15/2013 BP Systolic 126 mmHg BP Diastolic 80 mmHg Heart Rate 70 /min Body Temperature 97.6 F Respiratory Rate 20 /min O2 % BldC Oximetry 98 % Height 64 inches 5'4" Weight 174.00 lb BMI (Body Mass Index) 29.9 kg/m2 03/10/2013 BP Systolic 110 mmHg BP Diastolic 62 mmHg Heart Rate 84 /min Body Temperature 96.9 F Respiratory Rate 22 /min O2 % BldC Oximetry 97 % Height 64 inches 5'4" Weight 175.00 lb BMI (Body Mass Index) 30.0 kg/m2 11/24/2012 BP Systolic 120 mmHg BP Diastolic 80 mmHg Heart Rate 80 /min Body Temperature 98.5 F Respiratory Rate 16 /min Height 64 inches 5'4" Weight 170.00 lb BMI (Body Mass Index) 29.2 kg/m2 05/04/2012 BP Systolic 118 mmHg BP Diastolic 70 mmHg Heart Rate 76 /min Body Temperature 98.5 F O2 % BldC Oximetry 98 % Height 64 inches 5'4" Weight 185.00 lb BMI (Body Mass Index) 31.8 kg/m2 08/01/2011 BP Systolic 120 mmHg BP Diastolic 80 mmHg Heart Rate 72 /min Body Temperature 98.7 F Height 64 inches 5'4" Weight 180.00 lb BMI (Body Mass Index) 30.9 kg/m2 10/16/2010 BP Systolic 136 mmHg BP Diastolic 68 mmHg Heart Rate 72 /min Height 64 inches 5'4" Weight 168.00 lb BMI (Body Mass Index) 28.8 kg/m2 06/03/2010 BP Systolic 118 mmHg BP Diastolic 70 mmHg Heart Rate 68 /min Respiratory Rate 15 /min Height 64 inches 5'4" Weight 162.00 lb BMI (Body Mass Index) 27.8 kg/m2 10/12/2009 BP Systolic 120 mmHg BP Diastolic 70 mmHg Heart Rate 88 /min Height 64 inches 5'4" Weight 153.00 lb BMI (Body Mass Index) 26.3 kg/m2 10/23/2008 BP Systolic 110 mmHg BP Diastolic 70 mmHg Heart Rate 72 /min Body Temperature 98.4 F Height 64 inches 5'4" Weight 171.00 lb BMI (Body Mass Index) 29.3 kg/m2 09/14/2008 BP Systolic 118 mmHg BP Diastolic 70 mmHg Heart Rate 88 /min Respiratory Rate 20 /min Height 64 inches 5'4" Weight 171.00 lb BMI (Body Mass Index) 29.3 kg/m2 08/15/2008 BP Systolic 110 mmHg BP Diastolic 80 mmHg Heart Rate 72 /min Body Temperature 98.6 F Weight 173.00 lb 05/22/2008 BP Systolic 120 mmHg BP Diastolic 78 mmHg Heart Rate 68 /min Height 64 inches 5'4" Weight 158.00 lb BMI (Body Mass Index) 27.1 kg/m2 04/30/2005 BP Systolic 120 mmHg BP Diastolic 80 mmHg Heart Rate 74 /min Respiratory Rate 15 /min Height 64 inches 5'4" 12/06/2003 BP Systolic 124 mmHg BP Diastolic 70 mmHg Heart Rate 74 /min Height 64 inches 5'4" Weight 174.00 lb BMI (Body Mass Index) 29.9 kg/m2 10/13/2002 BP Systolic 130 mmHg BP Diastolic 88 mmHg Heart Rate 88 /min Height 64 inches 5'4" Weight 166.00 lb BMI (Body Mass Index) 28.5 kg/m2 07/06/2002 BP Systolic 130 mmHg BP Diastolic 80 mmHg Height 64 inches 5'4" Weight 170.00 lb BMI (Body Mass Index) 29.2 kg/m2 09/22/2001 BP Systolic 130 mmHg BP Diastolic 70 mmHg Heart Rate 64 /min Height 64 inches 5'4" Weight 172.00 lb BMI (Body Mass Index) 29.5 kg/m2 09/01/2001 BP Systolic 142 mmHg BP Diastolic 88 mmHg Height 64 inches 5'4" Weight 174.00 lb BMI (Body Mass Index) 29.9 kg/m2 08/10/2001 BP Systolic 110 mmHg BP Diastolic 74 mmHg Heart Rate 68 /min Height 64 inches 5'4" Weight 176.00 lb BMI (Body Mass Index) 30.2 kg/m2 07/19/2001 BP Systolic 128 mmHg BP Diastolic 76 mmHg Heart Rate 68 /min Height 64 inches 5'4" Weight 174.00 lb BMI (Body Mass Index) 29.9 kg/m2 05/11/2001 BP Systolic 128 mmHg BP Diastolic 80 mmHg Heart Rate 86 /min Body Temperature 98.0 F Height 64 inches 5'4" Weight 176.00 lb BMI (Body Mass Index) 30.2 kg/m2 08/06/1999 BP Systolic 118 mmHg BP Diastolic 72 mmHg Height 64 inches 5'4" Weight 167.00 lb BMI (Body Mass Index) 28.7 kg/m2 10/30/1998 BP Systolic 100 mmHg LG Cuff BP Diastolic 70 mmHg LG Cuff Height 64 inches 5'4" Weight 186.00 lb 08/21/1998 BP Systolic 122 mmHg LG Cuff BP Diastolic 80 mmHg LG Cuff Height 64 inches 5'4" Weight 184.50 lb 10/11/1997 BP Systolic 116 mmHg BP Diastolic 80 mmHg Weight 191.50 lb 09/08/1997 BP Systolic 142 mmHg BP Diastolic 96 mmHg Weight 186.00 lb 03/25/1997 BP Systolic 120 mmHg BP Diastolic 84 mmHg Body Temperature 97.4 F Height 64.00 inches 5'4" Weight 187.00 lb Results Test Date Test Result H/L Range Note Xray 12/29/2017 Mammography <pending> Screening, Bilateral; 2-View Each Breast Laboratory test 03/25/2017 Clotest SEE RESULT 1 finding BELOW Laboratory test 03/25/2017 Surgical Interface SEE RESULT 2 finding Order BELOW CBC No Diff 03/25/2017 White Blood Count 8.2 10^3/uL 3.5-10.8 Red Blood Count 4.32 10^6/uL 4.0-5.4 Hemoglobin 11.2 g/dL Low 12.0-16.0 Hematocrit 33 % Low 35-47 Mean Corpuscular Volume 77 fL Low 80-97 Mean Corpuscular Hemoglobin 26 pg Low 27-31 Mean Corpuscular HGB Conc 34 g/dL 31-36 Red Cell Distribution Width 19 % High 10.5-15 Platelet Count 368 10^3/uL 150-450 Mean Platelet Volume 8 um3 7.4-10.4 Iron & Iron Binding Capacity 03/25/2017 Iron 17 g/dL Low 50-212 Unsaturated Iron Binding 190 g/dL Total Iron Binding Capacity 207 g/dL Low 250-450 % Iron Saturation 8 % Low 15-55 Comp Metabolic Panel 03/25/2017 Sodium 133 mmol/L 133-145 Potassium 3.4 mmol/L Low 3.5-5.0 Chloride 96 mmol/L Low 101-111 Co2 Carbon Dioxide 29 mmol/L 22-32 Anion Gap 8 mmol/L 2-11 Glucose 95 mg/dL 70-100 Blood Urea Nitrogen 12 mg/dL 6-24 Creatinine 1.10 mg/dL High 0.51-0.95 BUN/Creatinine Ratio 10.9 8-20 Calcium 8.8 mg/dL 8.6-10.3 Total Protein 5.4 g/dL Low 6.4-8.9 Albumin 2.8 g/dL Low 3.2-5.2 Globulin 2.6 g/dL 2-4 Albumin/Globulin Ratio 1.1 1-3 Total Bilirubin 1.10 mg/dL High 0.2-1.0 Alkaline Phosphatase 319 U/L High 34-104 Alt 73 U/L High 7-52 Ast 126 U/L High 13-39 Egfr Non- 49.0 >60 Egfr 63.0 >60 3 Laboratory test finding 03/25/2017 Stool Occult Blood SEE RESULT BELOW 4 Laboratory test finding 03/25/2017 Ferritin 129.7 ng/mL 11-307 Vitamin B12 617 pg/mL 180-914 5 Laboratory test finding 03/19/2017 Cortisol 18.09 g/dL 6, 7 Laboratory test finding 03/19/2017 Cortisol 16.93 g/dL 8, 9 Laboratory test finding 03/19/2017 Cortisol 11.76 g/dL 10, 11 Comprehensive Metabolic Prof 03/04/2017 Sodium 138 mEq/L 134-149 Potassium 3.7 mEq/L 3.6-5.5 Chloride 105 mEq/L 94-112 Carbon Dioxide 27 mEq/L 21-32 Glucose 101 mg/dL 70-105 BUN 9 mg/dL 6-26 Creatinine 1.0 mg/dL 0.6-1.4 BUN/Creat Ratio 9.0 CALC 8.0-36.0 Calcium 10.1 mg/dL 8.6-10.2 Total Protein 6.7 g/dL 6.4-8.3 Albumin 4.0 g/dL 3.8-5.5 Globulin 2.7 g/dL 2.0-4.8 A/G Ratio 1.5 CALC 0.6-2.3 Alk. Phosphatase 68 U/L 30-110 Alt (SGPT) 17 U/L 7-35 Ast (Sgot) 36 U/L High 5-34 12 Total Bilirubin 0.7 mg/dL 0.2-1.3 GFR Non- 58 ml/min/1.73m^ Low >=60 GFR >60 ml/min/1.73m^ >=60 Laboratory test finding 03/04/2017 TSH 6.26 mIU/L High 0.50-6.00 13 Protein Electrophoresis 03/04/2017 Protein, Total, 6.6 g/dL 6.0-8.5 W/Interp Serum Albumin 3.1 g/dL 2.9-4.4 Jrxpt-9-Rodpwpei 0.3 g/dL 0.0-0.4 Csoun-1-Ecncvsuc 0.9 g/dL 0.4-1.0 Beta Globulin 1.2 g/dL 0.7-1.3 Gamma Globulin 1.1 g/dL 0.4-1.8 M-Tee Not Observed g/dL Not Observed Globulin, Total 3.5 g/dL 2.2-3.9 A/G Ratio 0.9 0.7-1.7 Please note: See Comment: 14 P E Interpretation, S See Comment: 15 PDF . Laboratory test finding 03/04/2017 PDF [id number] SEE IMAGE Lyme AB/Western Blot 12/31/2016 Lyme IgG/IgM Ab <0.91 ISR 0.00-0.90 16, 17 Reflex Lyme Disease Ab, Quant, IgM <0.80 index 0.00-0.79 16, 18 Laboratory test finding 12/31/2016 Cortisol 7.7 g/dL 16, 19 Comprehensive Metabolic Prof 12/12/2016 Sodium 135 mEq/L 134-149 Potassium 3.5 mEq/L Low 3.6-5.5 20 Chloride 92 mEq/L Low 94-112 Carbon Dioxide 27 mEq/L 21-32 Glucose 115 mg/dL High 70-105 BUN 17 mg/dL 6-26 Creatinine 1.6 mg/dL High 0.6-1.4 BUN/Creat Ratio 10.6 CALC 8.0-36.0 Calcium 10.2 mg/dL 8.6-10.2 Total Protein 7.5 g/dL 6.4-8.3 Albumin 4.4 g/dL 3.8-5.5 Globulin 3.1 g/dL 2.0-4.8 A/G Ratio 1.4 CALC 0.6-2.3 Alk. Phosphatase 69 U/L 30-110 Alt (SGPT) 38 U/L High 7-35 Ast (Sgot) 49 U/L High 5-34 Total Bilirubin 0.4 mg/dL 0.2-1.3 GFR Non- 34 ml/min/1.73m^ Low >=60 GFR 41 ml/min/1.73m^ Low >=60 Laboratory test finding 12/12/2016 Amylase, Serum 113 U/L High 20-105 21 Laboratory test finding 12/12/2016 C-Reactive Protein, 40.5 mg/L High 0.0- 4.9 22 Quant CBC Electronic (a) 12/12/2016 WBC 10.6 High 3.6-9.6 RBC 5.40 3.90-5.70 Hemoglobin (Fma/CMC/CTX) 13.0 g/dL 12.1 - 17.2 Hematocrit (Fma/CMC/CTX) 40.1 % 36.1 - 50.3 Platelets 484 10^3/ul High 150-400 Lymph% 16.8 % Low 17.0-48.0 Mixed% 9.5 Neutrophils % 73.7 Mean Corpuscular Vol 74 Low 82.2-97.4 Mean Corpuscular Hemoglobin 24.1 Low 27.6-33.3 Mean Corpuscular Hemo Concen 32.4 32.0-36.0 RDW 16.7 High 11.6-13.7 Mean Platelet Volume 7.4 5.5-11.0 Laboratory test finding 12/12/2016 Sedimentation Rate 46mm Laboratory test finding 11/12/2016 Sedimentation Rate 38mm Laboratory test finding 11/12/2016 Uric Acid 6.4 mg/dL 2.5-9.2 Xray 11/12/2016 Foot 2 Views Left <pending> Complete Blood Count 11/12/2016 WBC 8.1 x10^3/UL 3.6-9.6 RBC 4.23 x10^6/UL 3.90-5.70 HGB 10.7 g/dL Low 12.1-17.2 23 HCT 32 % Low 36-50 MCV 77.0 fL Low 82.2-97.4 MCH 25.3 pg Low 27.6-33.3 MCHC 33.1 g/dL 33.0-35.5 RDW 17.8 % High 11.6-13.7 PLT 472 x10^3/UL High 150-400 24 MPV 7.7 fL 7.4-10.4 Gran # 5.5 x10^3/UL 1.5-7.2 Lymph# 1.9 x10^3/UL 0.7-4.9 Yancey# 0.7 x10^3/UL 0.1-0.9 Gran % 66.3 % 42.2-75.2 Lymph % 24.4 % 20.5-51.1 Yancey% 9.3 % 1.7-9.3 Laboratory test finding 11/12/2016 C-Reactive Protein, 26.3 mg/L High 0.0- 4.9 25 Quant Urinalysis Profile 10/27/2016 Urine Color Yellow Urine Appearance Cloudy Urine Specific Kite 1.004 Low 1.010-1.030 Urine pH 6.0 5-9 Urine Urobilinogen Negative Negative Urine Ketones Negative Negative Urine Protein Negative Negative Urine Leukocytes 3+ Negative Urine Blood Negative Negative Urine Nitrite Negative Negative Urine Bilirubin Negative Negative Urine Glucose Negative Negative Urine White Blood Cell 2+(11-20/hpf) Absent Urine Red Blood Cell Absent Absent Urine Bacteria 1+ Absent Urine Squamous Epithelial Cell Present Absent CBC Auto Diff 10/27/2016 White Blood Count 7.7 10^3/uL 3.5-10.8 Red Blood Count 4.13 10^6/uL 4.0-5.4 Hemoglobin 10.4 g/dL Low 12.0-16.0 Hematocrit 32 % Low 35-47 Mean Corpuscular Volume 77 fL Low 80-97 Mean Corpuscular Hemoglobin 25 pg Low 27-31 Mean Corpuscular HGB Conc 33 g/dL 31-36 Red Cell Distribution Width 19 % High 10.5-15 Platelet Count 589 10^3/uL High 150-450 Mean Platelet Volume 7 um3 Low 7.4-10.4 Abs Neutrophils 4.4 10^3/uL 1.5-7.7 Abs Lymphocytes 1.8 10^3/uL 1.0-4.8 Abs Monocytes 1.0 10^3/uL High 0-0.8 Abs Eosinophils 0.3 10^3/uL 0-0.6 Abs Basophils 0.1 10^3/uL 0-0.2 Abs Nucleated RBC 0.01 10^3/uL Granulocyte % 57.6 % 38-83 Lymphocyte % 23.9 % Low 25-47 Monocyte % 13.5 % High 1-9 Eosinophil % 4.0 % 0-6 Basophil % 1.0 % 0-2 Nucleated Red Blood Cells % 0.1 Comp Metabolic Panel 10/27/2016 Sodium 135 mmol/L 133-145 Potassium 3.1 mmol/L Low 3.5-5.0 Chloride 99 mmol/L Low 101-111 Co2 Carbon Dioxide 28 mmol/L 22-32 Anion Gap 8 mmol/L 2-11 Glucose 113 mg/dL High 70-100 Blood Urea Nitrogen 7 mg/dL 6-24 Creatinine 0.91 mg/dL 0.51-0.95 BUN/Creatinine Ratio 7.7 Low 8-20 Calcium 8.8 mg/dL 8.6-10.3 Total Protein 6.6 g/dL 6.4-8.9 Albumin 3.3 g/dL 3.2-5.2 Globulin 3.3 g/dL 2-4 Albumin/Globulin Ratio 1.0 1-3 Total Bilirubin 0.50 mg/dL 0.2-1.0 Alkaline Phosphatase 90 U/L 34-104 Alt 22 U/L 7-52 Ast 34 U/L 13-39 Egfr Non- 60.9 >60 Egfr 78.4 >60 26 Laboratory test finding 10/27/2016 C Reactive Protein 15.30 mg/L High < 5.00 27 Urine Culture And Sensitivities SEE RESULT BELOW 28 Comprehensive Metabolic Prof 08/25/2016 Sodium 136 mEq/L 134-149 Potassium 3.4 mEq/L Low 3.6-5.5 29 Chloride 95 mEq/L 94-112 Carbon Dioxide 26 mEq/L 21-32 Glucose 104 mg/dL 70-105 BUN 16 mg/dL 6-26 Creatinine 1.1 mg/dL 0.6-1.4 BUN/Creat Ratio 14.5 CALC 8.0-36.0 Calcium 9.7 mg/dL 8.6-10.2 Total Protein 7.1 g/dL 6.4-8.3 Albumin 4.1 g/dL 3.8-5.5 Globulin 3.0 g/dL 2.0-4.8 A/G Ratio 1.4 CALC 0.6-2.3 Alk. Phosphatase 60 U/L 30-110 Alt (SGPT) 32 U/L 7-35 Ast (Sgot) 30 U/L 5-34 Total Bilirubin 0.5 mg/dL 0.2-1.3 GFR Non- 52 ml/min/1.73m^ Low >=60 GFR >60 ml/min/1.73m^ >=60 Ua - Micro (Fma) 08/25/2016 Appearance clear Color yellow Glucose, Urine (Fma/CMC/CTX) neg Bilirubin neg Ketones neg SP Grav 1.015 Blood neg PH 7.0 Protein neg Urobil 0.2 Nitrite neg Leukocytes (Fma/CMC/Centrex) moderate WBC (Fma,Centrex) 10-12 Epith mod amount /Lpf Bacteria trace /Hpf Laboratory test finding 08/25/2016 Hemoglobin A1c (a) 6.3 % High 4.1- 5.7 CBC Electronic (a) 08/25/2016 WBC 14.9 High 3.6-9.6 RBC 5.03 3.90-5.70 Hemoglobin (Fma/CMC/CTX) 13.5 g/dL 12.1 - 17.2 Hematocrit (Fma/CMC/CTX) 41.1 % 36.1 - 50.3 Platelets 407 10^3/ul High 150-400 Lymph% 13.0 % Low 17.0-48.0 Mixed% 4.9 Neutrophils % 82.1 Mean Corpuscular Vol 82 Low 82.2-97.4 Mean Corpuscular Hemoglobin 26.8 Low 27.6-33.3 Mean Corpuscular Hemo Concen 32.8 32.0-36.0 RDW 15.6 High 11.6-13.7 Mean Platelet Volume 7.0 5.5-11.0 Urine Culture Routine 08/25/2016 Urine Culture, Routine Final report 30 Result 1 See Comment: 30, 31 PT And PTT 08/25/2016 Inr 1.0 30, 32 Prothrombin Time 10.2 seconds 9.6-11.5 30 aPTT 28.7 seconds 25.0-31.3 30 Laboratory test 07/07/2016 Point of Care 121 mg/dL High 74-106 33 finding Glucose Laboratory test 07/04/2016 Surgical Pathology SEE RESULT BELOW 34 finding Comp Metabolic Panel 10/05/2015 Sodium 135 mmol/L 133-145 Potassium 3.3 mmol/L Low 3.5-5.0 Chloride 96 mmol/L Low 101-111 Co2 Carbon Dioxide 29 mmol/L 22-32 Anion Gap 10 mmol/L 2-11 Glucose 118 mg/dL High 70-100 Blood Urea Nitrogen 17 mg/dL 6-24 Creatinine 1.15 mg/dL High 0.51-0.95 BUN/Creatinine Ratio 14.8 8-20 Calcium 9.2 mg/dL 8.6-10.3 Total Protein 7.0 g/dL 6.4-8.9 Albumin 3.6 g/dL 3.2-5.2 Globulin 3.4 g/dL 2-4 Albumin/Globulin Ratio 1.1 1-3 Total Bilirubin 0.50 mg/dL 0.2-1.0 Alkaline Phosphatase 60 U/L 34-104 Alt 27 U/L 7-52 Ast 25 U/L 13-39 Egfr Non- 46.6 >60 Egfr 60.0 >60 35 Laboratory test finding 10/05/2015 Magnesium 1.6 mg/dL Low 1.9-2.7 Creatine Kinase(CK) 72 U/L 10-223 Troponin I 0.00 ng/mL <0.03 36 CKMB 10/05/2015 CKMB ng/mL 2.8 ng/mL 0.6-6.3 Laboratory test finding 10/05/2015 TSH (Thyroid Stim Horm) 5.15 mcIU/mL 0.34-5.60 Lipase 1216 U/L High 11.0-82.0 LDH 198 U/L 140-271 Lipid Profile (Trig/Chol/HDL) 10/05/2015 Triglycerides 103 mg/dL 37 Cholesterol 215 mg/dL 38 HDL Cholesterol 98.0 mg/dL 39 LDL Cholesterol 96 mg/dL 40 CBC Auto Diff 10/05/2015 White Blood Count 17.0 10^3/uL High 3.5-10.8 Red Blood Count 4.54 10^6/uL 4.0-5.4 Hemoglobin 11.8 g/dL Low 12.0-16.0 Hematocrit 36 % 35-47 Mean Corpuscular Volume 80 fL 80-97 Mean Corpuscular Hemoglobin 26 pg Low 27-31 Mean Corpuscular HGB Conc 33 g/dL 31-36 Red Cell Distribution Width 17 % High 10.5-15 Platelet Count 348 10^3/uL 150-450 Mean Platelet Volume 8 um3 7.4-10.4 Abs Neutrophils 12.4 10^3/uL High 1.5-7.7 Abs Lymphocytes 2.6 10^3/uL 1.0-4.8 Abs Monocytes 1.6 10^3/uL High 0-0.8 Abs Eosinophils 0.1 10^3/uL 0-0.6 Abs Basophils 0.2 10^3/uL 0-0.2 Abs Nucleated RBC 0 10^3/uL Granulocyte % 73.3 % 38-83 Lymphocyte % 15.1 % Low 25-47 Monocyte % 9.5 % High 1-9 Eosinophil % 0.9 % 0-6 Basophil % 1.2 % 0-2 Nucleated Red Blood Cells % 0 Laboratory test finding 2015 Glucose Serum 130 High 70-105 Hemoglobin A1c (Fma) 6.7 % % High 4.1-5.7 Laboratory test 08/01/2015 Surgical Pathology SEE RESULT BELOW 41 finding Lipid Profile 07/11/2015 Cholesterol 245 mg/dL High 120-200 Triglycerides 111 mg/dL 30-200 HDL Cholesterol 83 mg/dL 30-85 LDL (Calculated) 140 CALC High 0-129 VLDL Cholesterol 22 mg/dL 0-50 HDL Risk Factor 3.0 CALC 0.0-4.4 Basic Metabolic Profile 07/11/2015 Sodium 142 mEq/L 134-149 Potassium 3.6 mEq/L 3.6-5.5 Chloride 101 mEq/L 94-112 Carbon Dioxide 29 mEq/L 21-32 Glucose 78 mg/dL 70-105 BUN 14 mg/dL 6-26 Creatinine 0.9 mg/dL 0.6-1.4 BUN/Creat Ratio 15.6 CALC 8.0-36.0 Calcium 9.3 mg/dL 8.6-10.2 GFR Non- >60 ml/min/1.73m^ >=60 GFR >60 ml/min/1.73m^ >=60 Laboratory test finding 06/14/2015 Troponin I 0.01 ng/mL <0.03 42 B Type Natriuretic Peptide 109 pg/mL High 43 Comp Metabolic Panel 06/14/2015 Sodium 135 mmol/L 133-145 Potassium 4.0 mmol/L 3.5-5.0 Chloride 99 mmol/L Low 101-111 Co2 Carbon Dioxide 27 mmol/L 22-32 Anion Gap 9 mmol/L 2-11 Glucose 100 mg/dL 70-100 Blood Urea Nitrogen 22 mg/dL 6-24 Creatinine 0.97 mg/dL High 0.51-0.95 BUN/Creatinine Ratio 22.7 High 8-20 Calcium 9.5 mg/dL 8.6-10.3 Total Protein 7.0 g/dL 6.4-8.9 Albumin 3.7 g/dL 3.2-5.2 Globulin 3.3 g/dL 2-4 Albumin/Globulin Ratio 1.1 1-3 Total Bilirubin 0.40 mg/dL 0.2-1.0 Alkaline Phosphatase 59 U/L 34-104 Alt 52 U/L 7-52 Ast 35 U/L 13-39 Egfr Non- 56.9 >60 Egfr 73.2 >60 44 Laboratory test finding 06/14/2015 Partial Thrombo Time 23.4 seconds Low 26.0-36.3 PTT Lactic Acid 1.9 mmol/L 0.5-2.0 45 Inr/Protime 06/14/2015 Inr 1.00 0.89-1.11 CBC Auto Diff 06/14/2015 White Blood Count 15.1 10^3/uL High 3.5-10.8 Red Blood Count 5.18 10^6/uL 4.0-5.4 Hemoglobin 13.3 g/dL 12.0-16.0 Hematocrit 42 % 35-47 Mean Corpuscular Volume 81 fL 80-97 Mean Corpuscular Hemoglobin 26 pg Low 27-31 Mean Corpuscular HGB Conc 32 g/dL 31-36 Red Cell Distribution Width 18 % High 10.5-15 Platelet Count 376 10^3/uL 150-450 Mean Platelet Volume 8 um3 7.4-10.4 Abs Neutrophils 13.2 10^3/uL High 1.5-7.7 Abs Lymphocytes 0.7 10^3/uL Low 1.0-4.8 Abs Monocytes 1.1 10^3/uL High 0-0.8 Abs Eosinophils 0 10^3/uL 0-0.6 Abs Basophils 0 10^3/uL 0-0.2 Abs Nucleated RBC 0 10^3/uL Granulocyte % 87.3 % High 38-83 Lymphocyte % 4.9 % Low 25-47 Monocyte % 7.4 % 1-9 Eosinophil % 0.1 % 0-6 Basophil % 0.3 % 0-2 Nucleated Red Blood Cells % 0 Laboratory test 06/07/2015 Rapid Influenza A & SEE RESULT BELOW 46 finding B Antigen CBC Auto Diff 06/06/2015 White Blood Count 17.2 10^3/uL High 3.5-10.8 Red Blood Count 4.86 10^6/uL 4.0-5.4 Hemoglobin 12.5 g/dL 12.0-16.0 Hematocrit 39 % 35-47 Mean Corpuscular Volume 80 fL 80-97 Mean Corpuscular Hemoglobin 26 pg Low 27-31 Mean Corpuscular HGB Conc 32 g/dL 31-36 Red Cell Distribution Width 18 % High 10.5-15 Platelet Count 379 10^3/uL 150-450 Mean Platelet Volume 8 um3 7.4-10.4 Abs Neutrophils 14.7 10^3/uL High 1.5-7.7 Abs Lymphocytes 1.2 10^3/uL 1.0-4.8 Abs Monocytes 1.3 10^3/uL High 0-0.8 Abs Eosinophils 0 10^3/uL 0-0.6 Abs Basophils 0 10^3/uL 0-0.2 Abs Nucleated RBC 0.02 10^3/uL Granulocyte % 85.6 % High 38-83 Lymphocyte % 6.7 % Low 25-47 Monocyte % 7.6 % 1-9 Eosinophil % 0 % 0-6 Basophil % 0.1 % 0-2 Nucleated Red Blood Cells % 0.1 Laboratory test 06/06/2015 Hemoglobin A1c 7.6 % High Less than 6.0 47 finding (Glyco HGB) Comp Metabolic Panel 06/06/2015 Sodium 136 mmol/L 133-145 Potassium 3.3 mmol/L Low 3.5-5.0 Chloride 100 mmol/L Low 101-111 Co2 Carbon Dioxide 25 mmol/L 22-32 Anion Gap 11 mmol/L 2-11 Glucose 171 mg/dL High 70-100 Blood Urea Nitrogen 28 mg/dL High 6-24 Creatinine 1.42 mg/dL High 0.51-0.95 BUN/Creatinine Ratio 19.7 8-20 Calcium 9.2 mg/dL 8.6-10.3 Total Protein 6.9 g/dL 6.4-8.9 Albumin 3.7 g/dL 3.2-5.2 Globulin 3.2 g/dL 2-4 Albumin/Globulin Ratio 1.2 1-3 Total Bilirubin 0.30 mg/dL 0.2-1.0 Alkaline Phosphatase 58 U/L 34-104 Alt 23 U/L 7-52 Ast 27 U/L 13-39 Egfr Non- 36.7 >60 Egfr 47.2 >60 48 Influenza A&B-fma 06/04/2015 Influenza A negative Influenza B negative Laboratory test finding 05/07/2015 PDF [id number] SEE IMAGE 49 CBC Electronic (Fma) 05/07/2015 WBC 18.9 High 3.6-9.6 50 RBC 5.09 3.90-5.70 Hemoglobin (Fma/CMC/CTX) 13.8 g/dL 12.1 - 17.2 Hematocrit (Fma/CMC/CTX) 42.8 % 36.1 - 50.3 Platelets 333 10^3/ul 150-400 Lymph% 8.6 % Low 17.0-48.0 Mixed% 3.1 Neutrophils % 88.3 Mean Corpuscular Vol 84 82.2-97.4 Mean Corpuscular Hemoglobin 27.0 Low 27.6-33.3 Mean Corpuscular Hemo Concen 32.1 32.0-36.0 RDW 15.7 High 11.6-13.7 Mean Platelet Volume 6.7 5.5-11.0 Laboratory test finding 05/07/2015 Sedimentation Rate 53 mm Hemoglobin A1c (Fma) 6.6 % High 4.1-5.7 Lyme AB/Western Blot Reflex 05/07/2015 Lyme IgG/IgM Ab <0.91 ISR 0.00- 0.90 49, 51 Lyme Disease Ab, Quant, IgM <0.80 index 0.00-0.79 49, 52 Rheumatoid Arthritis Factor 05/07/2015 Ra Latex Turbid. 14.6 IU/mL High 0.0-13.9 49 ([facility]) Spep Serum Protein 05/07/2015 Protein, Total, 6.5 g/dL 6.0-8.5 49 Electrophoresis Serum Albumin 3.3 g/dL 3.2-5.6 49 Vomlm-7-Mrvlwflu 0.4 g/dL 0.1-0.4 49 Yhplw-5-Omdcqiiw 1.1 g/dL 0.4-1.2 49 Beta Globulin 1.1 g/dL 0.6-1.3 49 Gamma Globulin 0.6 g/dL 0.5-1.6 49 M-Tee Not Observed g/dL Not Observed 49 Globulin, Total 3.2 g/dL 2.0-4.5 49 A/G Ratio 1.0 0.7-2.0 49 Please note: See Comment: 49, 53 Laboratory test finding 05/07/2015 C-Reactive Protein, 239.3 mg/L High 0.0 -4.9 49 Quant Antinuclear Antibodies, Ifa Negative 49, 54 Comprehensive Metabolic Prof 05/13/2014 Sodium 142 mEq/L 134-149 Potassium 3.6 mEq/L 3.6-5.5 Chloride 101 mEq/L 94-112 Carbon Dioxide 30 mEq/L 21-32 Glucose 97 mg/dL 70-105 BUN 16 mg/dL 6-26 Creatinine 1.1 mg/dL 0.6-1.4 BUN/Creat Ratio 14.5 CALC 8.0-36.0 Calcium 10.1 mg/dL 8.6-10.2 Total Protein 6.7 g/dL 6.4-8.3 Albumin 3.9 g/dL 3.8-5.5 Globulin 2.8 g/dL 2.0-4.8 A/G Ratio 1.4 CALC 0.6-2.3 Alk. Phosphatase 58 U/L 30-110 Alt (SGPT) 26 U/L 7-35 Ast (Sgot) 24 U/L 5-34 Total Bilirubin 0.3 mg/dL 0.2-1.3 Laboratory test finding 05/13/2014 Free T4 0.95 ng/dL 0.75-1.54 55 TSH 5.97 mIU/L 0.50-6.00 Laboratory test finding 05/13/2014 Sed Rate (Fma/CMC/Centrex) 42mm CBC Electronic (a) 05/13/2014 WBC 14.2 High 3.6-9.6 RBC 4.47 3.90-5.70 Hemoglobin (Fma/CMC/CTX) 12.5 g/dL 12.1 - 17.2 Hematocrit (Fma/CMC/CTX) 36.0 % Low 36.1 - 50.3 Platelets 365 10^3/ul 150-400 Lymph% 20.1 % 17.0-48.0 Mixed% 6.1 Neutrophils % 73.8 Mean Corpuscular Vol 80 Low 82.2-97.4 Mean Corpuscular Hemoglobin 28.0 27.6-33.3 Mean Corpuscular Hemo Concen 34.9 32.0-36.0 RDW 16.2 High 11.6-13.7 Mean Platelet Volume 7.0 5.5-11.0 Creatinine 12/15/2012 Creatinine 1.10 mg/dL 0.50-1.40 Egfr Non- 49.5 >60 Egfr 63.7 >60 56 Laboratory test 08/01/2011 TSH 2.58 mIU/L 0.50-6.00 finding Laboratory test 08/01/2011 Antinuclear Abs, Ifa Negative 57 finding Laboratory test 08/01/2011 Sed Rate 44mm finding (a/CMC/Centrex) CBC Electronic ([facility]) 08/01/2011 WBC 11.5 High 3.6-9.6 RBC 4.33 3.90-5.70 Hemoglobin (Fma/CMC/CTX) 11.6 g/dL Low 12.1 - 17.2 Hematocrit (Fma/CMC/CTX) 36.2 % 36.1 - 50.3 Platelets 385 10^3/ul 150-400 Lymph% 14.9 Low 20.5-51.1 Mixed% 7.2 Neutrophils % 77.9 Mean Corpuscular Vol 83.6 82.2-97.4 Mean Corpuscular Hemoglobin 26.8 Low 27.6-33.3 Mean Corpuscular Hemo Concen 32.0 32.0-36.0 RDW 16.2 High 11.6-13.7 Mean Platelet Volume 10.1 6.5-11.0 Culture And 01/07/2011 Anaerobic Culture NG4 58, 59 Sensitivity Anaerobic Culture 01/07/2011 Gram Stain Smear NO ORGANISMS SEE 58, 60 <SEE NOTE> Gram Stain Smear 01/07/2011 Culture NG2F 58, 61 Culture/Sensitivity Sensitivity Surgical Pathology 04/25/2009 Surgical Pathology 62 <SEE NOTE> Laboratory test 10/23/2008 Sed Rate 34mm finding (a/CMC/Centrex) CBC ([facility]) 10/23/2008 WBC 7.8 3.6-9.6 RBC 4.62 3.90-5.70 Hemoglobin (a/CMC/CTX) 12.4 g/dL 12.1 - 17.2 Hematocrit (Fma/CMC/CTX) 37.6 % 36.1 - 50.3 Mean Corpuscular Vol 81.4 Low 82.2-97.4 Mean Corpuscular Hemaglobin 26.8 Low 27.6-33.3 Mean Corpuscular Hemo Concen 33.0 33.0-36.0 Platelets 360 10^3/ul 150-400 Lymph% 27.4 20.5-51.1 Mixed% 10.3 Neutrophils % 62.3 RDW 14.7 High 11.6-13.7 Mean Platelet Volume 10.2 7.4-10.4 Comprehensive Metabolic Prof 10/23/2008 Albumin 4.4 g/dL 3.8-5.5 Alk. Phos. 55 U/L 30-110 Alt (SGPT) 15 U/L 7-35 Ast (Sgot) 24 U/L 5-34 BUN 17 mg/dL 6-26 Calcium 9.9 mg/dL 8.6-10.2 Chloride 98 mEq/L 94-112 Creatinine 1.1 mg/dL 0.6-1.4 Carbon Dioxide 30 mEq/L 21-32 Glucose 97 mg/dL 70-105 Sodium 141 mEq/L 134-149 Total Bilirubin 0.3 mg/dL 0.2-1.3 Total Protein 6.9 g/dL 6.3-8.1 Potassium 3.7 mEq/L 3.6-5.5 Globulin 2.5 g/dL 2.0-4.8 A/G Ratio 1.8 Calc 0.6-2.2 BUN/Creat Ratio 15.0 Calc 8.0-36.0 Laboratory test finding 10/23/2008 TSH 3.78 mIU/L 0.50-6.00 Laboratory test finding 10/23/2008 CK, Total 139 U/L 29-229 Aldolase, Serum 2.6 U/L 1.2-7.6 Comprehensive Metabolic Prof 05/22/2008 Albumin 4.4 g/dL 3.8-5.5 Alk. Phos. 73 U/L 30-110 Alt (SGPT) 15 U/L 7-35 Ast (Sgot) 20 U/L 5-34 BUN 21 mg/dL 6-26 Calcium 9.7 mg/dL 8.6-10.2 Chloride 105 mEq/L 94-112 Creatinine 0.9 mg/dL 0.6-1.4 Carbon Dioxide 28 mEq/L 21-32 Glucose 131 mg/dL High 70-105 Sodium 134 mEq/L 134-149 Total Bilirubin 0.2 mg/dL 0.2-1.3 Total Protein 7.3 g/dL 6.3-8.1 Potassium 3.6 mEq/L 3.6-5.5 Globulin 2.9 g/dL 2.0-4.8 A/G Ratio 1.5 Calc 0.6-2.2 BUN/Creat Ratio 22.8 Calc 8.0-36.0 Laboratory test finding 01/26/2006 Stool Specimen Description L^LIQUID^ STCON 63 Surgical Pathology <SEE NOTE> 64 O P: Giardia/Crypto Screen Giardia and cryp <SEE NOTE> 65 Stool Culture & 01/26/2006 Stool Cult Sensitivity NEGATIVE FOR THE 66 Sensitivies <SEE NOTE> Laboratory test finding 01/26/2006 Campylobacter NO GROWTH OF CAM 67 <SEE NOTE> Campylobacter NO PATHOGENS TO <SEE NOTE> 68 Laboratory test finding 05/07/2005 [facility] [facility] CMP;LIPID;T4;TSH; See Image Report CBC Electronic [place] 06/03/2002 WBC 10.1 CUMM 4.8-10.8 RBC 5.41 CUMM High 4.2-5.4 Hemoglobin (a/CMC/CTX) 15.2 g/dL 12.0-16.0 Hematocrit 44 % 35-47 Mean Corpuscular Vol 81 UM3 79-97 Mean Corpuscular Hemaglobin 28 pg 27-31 Mean Corpuscular Hemo Concen 35 g/dL 32-36 RDW 14 10.5-15 Platelets 388 CUMM 150-450 Mean Platelet Volume 8.7 7.4-10.4 Granulocytes 66.3 % 38-83 Lymphocytes 23.5 % 20-45 Monocytes 8.4 % 1-9 Eosinophil 1.4 0-6 Basophil% 0.4 0-2 Abs Lymphs 2.4 1.0-4.8 Abs Mononuclear 0.8 0-0.8 Abs Grans 6.8 1.5-7.7 Abs Eosinophils 0.1 0-0.6 Abs Basophils 0 0-0.2 Laboratory test finding 06/03/2002 Aptt 25.5 SEC 20.3-33.7 PT/Inr (a[place] 06/03/2002 PT--Therapy 11.9 SEC 10.7-13.1 (Protime/Centrex) Inr 1.02 69 Comp Metabolic ([facility]) 06/03/2002 Glucose, Serum (a/CMC/CTX) 97 mg/dL 70- 105 BUN (a/CMC/Centrex) 9 mg/dL 6-24 Creatinine 0.9 mg/dL 0.5-1.4 BUN/Creatinin Ratio 10.0 8-20 Sodium 136 mmol/L 135-145 Potassium 3.0 mmol/L Low 3.5-5.0 Chloride 98 mmol/L Low 101-111 Co2 28.0 mmol/L 22-32 Calcium 9.4 mg/dL 8.7-10.2 Total Protein 7.2 GM/DL 6.2-8.1 Albumin (Fma/CMCC/Centrex) 3.8 3.6-5.4 Globulin 3.4 2-4 A/G Ratio (Fma/CMC/Centrex) 1.1 1-3 Alkaline Phosphatase (F/C/CTX) 52 U/L 30-110 Alt (SGPT) (Fma/CMC/Centrex) 13 Low 14-54 Ast (Sgot) (Fma/CMC/Centrex) 20 12-42 Bilirubin, Total - mg/dL 0.4-1.5 1 SEE RESULT BELOW Name: NAJMA BOND : [address]: Alexx Prather MD Acct: [id number] Unit: [id number] AGE: 71 Location: ENDO Re03/25/17 SEX: F Status: REG REF SPEC: [id number] DINORAH: 03/25/17-[address] [facility] DR: Alexx Prather MD REQ: [id number] RECD: 03/25/17-1230 STATUS: COMP OTHR DR: Lew Mcmanus MD _ SOURCE: GAS ANTRUM SPDESC: ORDERED: Clotest Procedure Result Reported Site Clotest Final 03/26/17821 ML Clotest Negative * ML - MAIN LAB ([facility]) . END OF REPORT * ML=Testing performed at Main Lab DEPARTMENT OF PATHOLOGY, [address] [place] [address] Giancarlo Gibbons M.D. Director [facility] # [id number] 2 SEE RESULT BELOW Name: NAJMA BOND : [address]: Alexx Prather MD Acct: [id number] Unit: [id number] AGE: 71 Location: ENDO Re03/25/17 SEX: F Status: DEP REF SPEC: [id number] DINORAH: 03/25/17-[address] [facility] [address]: Alexx Prather MD REQ: [id number] RECD: 03/25/17 STATUS: EDIN ROJAS DR: Lew Mcmanus MD _ ORDERED: LEVEL 4, IMMUNO-FIRST An H. pylori immunohistochemical stain, with appropriately reacting controls , was performed and is negative for Helicobacter organisms. Addendum Signed (signature on file) Nova Clinton MD [id number] FINAL DIAGNOSIS Stomach, biopsy: -- Gastric oxyntic gland mucosa with no significant pathologic abnormality. -- No active gastritis nor Helicobacter pylori-like organisms are identified by H E microscopy. Comment: An immunohistochemical stain for Helicobacter pylori-like organisms is pending and will be reported in an addendum. CLINICAL HISTORY Nausea and vomiting every other day in AM before eating; eats little POST-OPERATIVE DIAGNOSIS Larynx ? symmetric, limited views; esophagus ? easily entered and the mucosa is normal in the upper, mid and lower esophagus. Small sliding hiatal hernia though no scarring or erosions. The mucosa appears entirely normal; stomach ? normal mucosa in the cardia, fundus, body, and antrum. No abnormalities are noted, CLOtest and biopsies taken; duodenum ? normal. Conclusions/Plan: Normal EGD; constipation, weight loss; sporadic nausea and vomiting - cause unclear CONTINUED ON NEXT PAGE * ML=Testing performed at Main Lab DEPARTMENT OF PATHOLOGY, [address] [place] [address] Giancarlo Gibbons M.D. Director [facility] # [id number] RUN DATE: 03/31/17 [facility] LAB LIVE PAGE 2 Patient: NAJMA BOND Everardo [id number] (Continued) GROSS DESCRIPTION (Continued) GROSS DESCRIPTION The specimen is received in formalin labeled, Gastric Biopsies, and consists of two moore irregular soft tissue fragments measuring 0.3 x 0.2 x 0.1 cm and 0.3 x 0.2 x 0.2 cm which are submitted entirely in one cassette. Signed (signature on file) Giancarlo Gibbons MD 1327 END OF REPORT * ML=Testing performed at Main Lab DEPARTMENT OF PATHOLOGY, [address] [place] [address] Giancarlo Gibbons M.D. Director [facility] # [id number] 3 Because ethnic data is not always readily available, this report includes an eGFR for both -Americans and non- Americans. The National Kidney Disease Education Program (NKDEP) does not endorse the use of the MDRD equation for patients that are not between the ages of 18 and 70, are , have extremes of body size, muscle mass, or nutritional status, or are non- or non-. According to the National Kidney Foundation, irrespective of diagnosis, the stage of the disease is based on the level of kidney function: Stage Description GFR(mL/min/1.73 m(2)) 1 Kidney damage with normal or decreased GFR 90 2 Kidney damage with mild decrease in GFR 60-89 3 Moderate decrease in GFR 30-59 4 Severe decrease in GFR 15-29 5 Kidney failure <15 (or dialysis) 4 SEE RESULT BELOW Name: TAYLORNAJMA Everardo : [address]: Alexx Prather MD Acct: [id number] Unit: [id number] AGE: 71 Location: ENDO Re03/25/17 SEX: F Status: REG REF SPEC: [id number] DINORAH: 03/25/17-[address]: Alexx Prather MD REQ: [id number] RECD: 03/25/17 STATUS: ANGELIQUE ROJAS DR: Lew Mcmanus MD _ SOURCE: STOOL SPDESC: ORDERED: Occult Bl, Diag Procedure Result Reported Site Stool Occult Blood (1) Final 03/25/17- 1301 ML Stool Occult Blood Negative Collection Date (1) 03/25/17 * ML - MAIN LAB ([facility]) . END OF REPORT * ML=Testing performed at Main Lab DEPARTMENT OF PATHOLOGY, [address] [place] [address] Giancarlo Gibbons M.D. Director [facility] # [id number] 5 Normal Range 180 to 914 Indeterminate Range 145 to 180 Deficient Range <145 6 Comment: 60 MINUTES 7 AM 8.7-22.4 PM <10 8 Comment: 30 MINUTES 9 AM 8.7-22.4 PM <10 10 Comment: BASELINE 11 AM 8.7-22.4 PM <10 12 consistent w/ previous results 13 UNABLE TO PERFORM TEST DUE TO INADEQUATE SPECIMEN 14 Protein electrophoresis scan will follow via computer, mail, or retail planning manager delivery. 15 The SPE pattern appears essentially unremarkable. Evidence of monoclonal protein is not apparent. 16 1 sst 17 Negative <0.91 Equivocal 0.91 - 1.09 Positive >1.09 18 Negative <0.80 Equivocal 0.80 - 1.19 Positive >1.19 IgM levels may peak at 3-6 weeks post infection, then gradually decline. 19 Cortisol AM 6.2 - 19.4 Cortisol PM 2.3 - 11.9 20 RESULTS VERIFIED BY REPEAT ANALYSIS 21 RESULTS VERIFIED BY REPEAT ANALYSIS 22 1sst 23 RESULTS VERIFIED BY REPEAT ANALYSIS 24 RESULTS VERIFIED BY REPEAT ANALYSIS 25 1 sst 26 Because ethnic data is not always readily available, this report includes an eGFR for both -Americans and non- Americans. The National Kidney Disease Education Program (NKDEP) does not endorse the use of the MDRD equation for patients that are not between the ages of 18 and 70, are , have extremes of body size, muscle mass, or nutritional status, or are non- or non-. According to the National Kidney Foundation, irrespective of diagnosis, the stage of the disease is based on the level of kidney function: Stage Description GFR(mL/min/1.73 m(2)) 1 Kidney damage with normal or decreased GFR 90 2 Kidney damage with mild decrease in GFR 60-89 3 Moderate decrease in GFR 30-59 4 Severe decrease in GFR 15-29 5 Kidney failure <15 (or dialysis) 27 Acute inflammation: >10.00 28 SEE RESULT BELOW Name: NAJMA BOND : [address]: Eduardo Young MD Acct: [id number] Unit: [id number] AGE: 71 Location: ED Re10/27/16 SEX: F Status: DEP ER SPEC: [id number] DINORAH: 10/27/16-[address] [facility] [address]: Eduardo Young MD REQ: [id number] RECD: 10/27/16 STATUS: ANGELIQUE ROJAS DR: Lew Mcmanus MD _ SOURCE: URINE SPDESC: ORDERED: Urine Culture Procedure Result Reported Site Urine Culture Final 10/29/16- 0856 ML No growth of clinically significant organisms * ML - MAIN LAB ([facility]) . END OF REPORT * ML=Testing performed at Main Lab DEPARTMENT OF PATHOLOGY, [address] [place] [address] Giancarlo Gibbons M.D. Director [facility] # [id number] 29 RESULTS VERIFIED BY REPEAT ANALYSIS 30 1 light blue tube filled t o the line 31 Culture shows less than 10,000 colony forming units of bacteria per milliliter of urine. This colony count is not generally considered to be clinically significant. 32 INTERNATIONAL NORMALIZED RATIO(INR) INDICATIONS INR RANGE PATIENTS NOT ON ANTICOAGULANT THERAPY * DEEP VENOUS THROMBOSIS 2.0-3.0 PULMONARY EMBOLISM 2.0-3.0 ATRIAL FIBRILLATION 2.0-3.0 PROPHYLAXIS: 2.0-3.0 HIGH-RISK SURGERY TISSUE HEART VALVES ATRIAL FIBRILLATION ACUTE MYOCARDIAL INFARCTION VALVULAR HEART DISEASE MECHANICAL PROSTHETIC VALVE 2.5-3.5 * USE OF INR VALUES SHOULD BE LIMITED TO PATIENTS WHO ARE ON STABLE ORAL ANTICOAGULANT THERAPY. AN INR ABOVE 5.0-5.5 APPEARS TO BE ASSOCIATED WITH AN UNACCEPTABLY HIGH RISK OF BLEEDING. 33 Traffic Workforce Representative: [id number] 34 SEE RESULT BELOW Name: BONDNAJMA Everardo : [address]: Felipe Aguirre MD Acct: [id number] Unit: [id number] AGE: 70 Location: [facility] Re07/04/16 SEX: F Status: REG REF SPEC: [id number] DINORAH: 07/04/16-[address] [facility] [address]: Felipe Aguirre MD REQ: [id number] RECD: 07/04/16 STATUS: EDIN ROJAS DR: Lew Mcmanus MD _ ORDERED: LEVEL IV COMMENTS: [id number] FINAL DIAGNOSIS Skin, back, excision: -- Squamous carcinoma in situ with hyperparakeratosis. -- No definitive invasion identified. -- Deep, tip, and lateral margins of resection are clear. PRE-OPERATIVE DIAGNOSIS * POST-OPERATIVE DIAGNOSIS Skin lesion back GROSS DESCRIPTION The specimen is received in formalin labeled, Skin Lesion, Back, and consists of a 2.4 x 1.1 cm moore-white wrinkled hairbearing unoriented skin ellipse excised to a depth of 1.0 cm with a central 0.8 x 0.7 x 0.3 cm moore-brown crusted nodular lesion. The specimen is inked, serially sectioned and entirely submitted in cassettes A through C to include ellipse ends in cassette A. Signed (signature on file) Giancarlo Gibbons MD 1347 END OF REPORT * ML=Testing performed at Main Lab DEPARTMENT OF PATHOLOGY, [address] [place] [address] Giancarlo Gibbons M.D. Director [facility] # [id number] 35 Because ethnic data is not always readily available, this report includes an eGFR for both -Americans and non- Americans. The National Kidney Disease Education Program (NKDEP) does not endorse the use of the MDRD equation for patients that are not between the ages of 18 and 70, are , have extremes of body size, muscle mass, or nutritional status, or are non- or non-. According to the National Kidney Foundation, irrespective of diagnosis, the stage of the disease is based on the level of kidney function: Stage Description GFR(mL/min/1.73 m(2)) 1 Kidney damage with normal or decreased GFR 90 2 Kidney damage with mild decrease in GFR 60-89 3 Moderate decrease in GFR 30-59 4 Severe decrease in GFR 15-29 5 Kidney failure <15 (or dialysis) 36 Reference Range and Interpretation: TnI (ng/mL) Interpretation Less Than 0.03 ng/mL Not supportive of diagnosis of AK 0.03 - 0.50 ng/mL Indeterminate: suggest serial studies if clinically indicated. Greater than 0.5 ng/mL Consistent with diagnosis of AK 37 Desirable <150 Borderline high 150-199 High 200-499 Very High >500 38 Desirable <200 Borderline high 200-239 High >239 39 Low <40 Desirable: 40-60 High: >60 40 Desirable: <100 mg/dL Near Optimal: 100-129 mg/dL Borderline High: 130-159 mg/dL High: 160-189 mg/dL Very High: >189 mg/dL 41 SEE RESULT BELOW Name: TAYLORNAJMA Everardo : [address]: Rubio Irby MD Acct: [id number] Unit: [id number] AGE: 69 Location: ENDO Re08/01/15 SEX: F Status: REG REF SPEC: [id number] DINORAH: 08/01/15-[address] [facility] [address]: Rubio Irby MD REQ: [id number] RECD: 08/01/15 STATUS: EDIN ROJAS DR: Lew Mcmanus MD _ ORDERED: LEVEL IV/6 FINAL DIAGNOSIS 1. Colon, cecum, biopsy: -- Benign colonic mucosa with no significant pathologic abnormalities. 2. Colon, right, biopsy: -- Benign colonic mucosa with no significant pathologic abnormalities. 3. Colon, transverse, biopsy: -- Benign colonic mucosa with no significant pathologic abnormalities. 4. Colon, descending, biopsy: -- Benign colonic mucosa with no significant pathologic abnormalities. 5. Colon, sigmoid, biopsy: -- Benign colonic mucosa with no significant pathologic abnormalities. 6. Colon, rectum, biopsy: -- Benign colonic mucosa with no significant pathologic abnormalities. CLINICAL HISTORY Ulcerative colitis POST-OPERATIVE DIAGNOSIS Colonoscopy into terminal ileum, prep good. Mild diffuse diverticulosis, no active colitis, no polyp. Conclusions/Plan: Inactive ulcerative colitis, mild diffuse diverticulosis. CONTINUED ON NEXT PAGE * ML=Testing performed at Main Lab DEPARTMENT OF PATHOLOGY, [address] [place] [address] Giancarlo Gibbons M.D. Director [place] # [id number] RUN DATE: 08/02/15 [facility] LAB LIVE PAGE 2 Patient: NAJMA BOND [id number] (Continued) GROSS DESCRIPTION (Continued) GROSS DESCRIPTION 1. The specimen is received in formalin labeled, Cecal Biopsies, and consists of a 0.7 x 0.4 x 0.1 cm aggregate of moore irregular soft tissue fragments, which is submitted entirely in one cassette. 2. The specimen is received in formalin labeled, Right Colon Biopsies, and consists of a 0.6 x 0.4 x 0.2 cm aggregate of moore-pink irregular soft tissue fragments, which is submitted entirely in one cassette. 3. The specimen is received in formalin labeled, Transverse Colon Biopsies , and consists of two moore-pink irregular soft tissue fragments averaging 0.5 x 0.3 x 0.2 cm , which are submitted entirely in one cassette. 4. The specimen is received in formalin labeled, Descending Colon Biopsies , and consists of a 0.6 x 0.4 x 0.2 cm aggregate of moore-pink irregular soft tissue fragments , which is submitted entirely in one cassette. 5. The specimen is received in formalin labeled, Sigmoid Colon Biopsies, and consists of a 0.6 x 0.5 x 0.1 cm aggregate of moore-pink irregular soft tissue fragments, which is submitted entirely in one cassette. 6. The specimen is received in formalin labeled, Rectal Biopsies, and consists of a 0.5 x 0.4 x 0.1 cm aggregate of moore-pink irregular soft tissue fragments, which is submitted entirely in one cassette. Signed (signature on file) Nova Clinton MD 1118 END OF REPORT * ML=Testing performed at [facility] Lab DEPARTMENT OF PATHOLOGY, [address] [place] [id number] Giancarlo Gibbons M.D. Director [facility] # [id number] 42 Reference Range and Interpretation: TnI (ng/mL) Interpretation Less Than 0.03 ng/mL Not supportive of diagnosis of AK 0.03 - 0.50 ng/mL Indeterminate: suggest serial studies if clinically indicated. Greater than 0.5 ng/mL Consistent with diagnosis of AK 43 >100 to <200 pg/mL: likely compensated congestive heart failure (CHF) 200 to 400 pg/mL: likely moderate CHF >400 pg/mL: likely moderate to severe CHF 44 Because ethnic data is not always readily available, this report includes an eGFR for both -Americans and non- Americans. The National Kidney Disease Education Program (NKDEP) does not endorse the use of the MDRD equation for patients that are not between the ages of 18 and 70, are , have extremes of body size, muscle mass, or nutritional status, or are non- or non-. According to the National Kidney Foundation, irrespective of diagnosis, the stage of the disease is based on the level of kidney function: Stage Description GFR(mL/min/1.73 m(2)) 1 Kidney damage with normal or decreased GFR 90 2 Kidney damage with mild decrease in GFR 60-89 3 Moderate decrease in GFR 30-59 4 Severe decrease in GFR 15-29 5 Kidney failure <15 (or dialysis) 45 [facility] Severe Sepsis and Septic Shock Management Bundle Measure requires all lactic acids initially measuring >2.0mmol/L be repeated. 46 SEE RESULT BELOW Name: TAYLORNAJMA Everardo : [address]: Cheikh Rodriguez Acct: [id number] Unit: [id number] AGE: 69 Location: ED Re06/06/15 SEX: F Status: REG ER SPEC: [id number] DINORAH: 06/07/15-[address]: Jayson Salazar MD REQ: [id number] RECD: 06/07/15 STATUS: ANGELIQUE ROAJS DR: Cheikh Nuno MD _ SOURCE: NASAL SPDESC: ORDERED: Flu A B Request Procedure Result Reported Site Rapid Influenza A B Request Final 06/07/15- 104 ML Specimen received for Influenza A/B Molecular testing * ML - MAIN LAB ([facility]) . END OF REPORT * ML=Testing performed at Main Lab DEPARTMENT OF PATHOLOGY, [address] [place] [address] Giancarlo Gibbons M.D. Director [facility] # [id number] 47 Therapeutic target for the treatment of diabetes Mellitus patients is <7% HBA1C, and in selective patients <6.0%.Please refer to [place] [employer] Diabetic care guidelines for further information. 48 Because ethnic data is not always readily available, this report includes an eGFR for both -Americans and non- Americans. The National Kidney Disease Education Program (NKDEP) does not endorse the use of the MDRD equation for patients that are not between the ages of 18 and 70, are , have extremes of body size, muscle mass, or nutritional status, or are non- or non-. According to the National Kidney Foundation, irrespective of diagnosis, the stage of the disease is based on the level of kidney function: Stage Description GFR(mL/min/1.73 m(2)) 1 Kidney damage with normal or decreased GFR 90 2 Kidney damage with mild decrease in GFR 60-89 3 Moderate decrease in GFR 30-59 4 Severe decrease in GFR 15-29 5 Kidney failure <15 (or dialysis) 49 2 SSTS 50 RESULT HUONG'D 51 Negative <0.91 Equivocal 0.91 - 1.09 Positive >1.09 52 Negative <0.80 Equivocal 0.80 - 1.19 Positive >1.19 IgM levels may peak at 3-6 weeks post infection, then gradually decline. 53 Protein electrophoresis scan will follow via computer, mail, or retail planning manager delivery. 54 Negative <1:80 Borderline 1:80 Positive >1:80 55 FASTING 56 Because ethnic data is not always readily available, this report includes an eGFR for both -Americans and non- Americans. The National Kidney Disease Education Program (NKDEP) does not endorse the use of the MDRD equation for patients that are not between the ages of 18 and 70, are , have extremes of body size, muscle mass, or nutritional status, or are non- or non-. According to the National Kidney Foundation, irrespective of diagnosis, the stage of the disease is based on the level of kidney function: Stage Description GFR(mL/min/1.73 m(2)) 1 Kidney damage with normal or decreased GFR 90 2 Kidney damage with mild decrease in GFR 60-89 3 Moderate decrease in GFR 30-59 4 Severe decrease in GFR 15-29 5 Kidney failure <15 (or dialysis) 57 Negative <1:80 Borderline 1:80 Positive >1:80 58 RESIDUAL RT L4-5 RT FORAMINAL DISC VERBAL TO KATHYA JASMINE/OR BY RKP at 1740 on 01/07/11. Results read back accurately. 59 FINAL: NO GROWTH DAY 4 60 NO ORGANISMS SEEN BY DIRECT SMEAR FEW 61 FINAL: NO GROWTH DAY 2 62 ---- RUN DATE: 04/27/09 [facility] NMI LIVE PAGE 1 RUN TIME: 1443 Specimen Inquiry RUN USER: INTERFACE -- Name: NAJMA BOND#: [id number] Status: REG REF Re04/25/09 Age/Sex: 63/F Unit#: [id number] Location: [facility] : 45 -- Specimen: [id number] Spec Date: 04/25/[address]: Rubio hanson MD Spec Type: SURGICAL P Received: 04/26/09-1254 Copies to: Lew Mcmanus MD SPECIMEN 1) BIOPSY SIGMOID COLON COLITIS 2) BIOPSY RECTUM COLITIS HISTORY POST-OP DIAGNOSIS: Distal left sided ulcerative colitis, moderately sever e,left mucosal pattern clears at approximately 45-50 cm. CLINICAL INFORMATION: Ulcerative colitis GROSS DESCRIPTION 1) Specimen received in formalin labelled [facility], Biopsy Sigmoid Colon Colitis and consists of multiple, moore, soft tissue fragments measuring 0.8 x 0.4 x 0.2 cm. in aggregate. Submitted entirely, one cassette. 1) Specimen received in formalin labelled Najma [facility], Biopsy Rectum Colitis and consists of multiple, moore, soft tissue fragments measuring 0.6 x 0.4 x 0.2 cm. in aggregate. Submitted entirely, one cassette. DIAGNOSIS 1) Sigmoid colon, biopsy: A) Fragments of large bowel mucosa with identical findings, mild architectural changes, focal acute cryptitis and increased inflammatory cells within the lamina propria. B) One single poorly formed granuloma is seen. 2) Rectum, biopsy: Fragments of large bowel with identical findings, mild architectural disorder, reactive changes, focal acute cryptitis and increased inflammatory cells within the lamina propria. Signed Electronically by: MAX SORIANO 04/27/09 1443 -- -- DEPARTMENT OF PATHOLOGY, [address] [place] [address] [facility] Permit #[id number] Giancarlo Gibbons M.D. Director Max Soriano M.D. Network Liaison Dir harper -- 63 N^NONFORMED^STFORM 64 ---- RUN DATE: 01/27/06 [facility] NMI LIVE PAGE 1 RUN TIME: 1438 Specimen Inquiry RUN USER: INTERFACE [id number] NAJMA BOND 60/F <REG REF 01/26> ([id number]) PRAVEENA Irby MD., Demetris Aquino -- Specimen: [id number] SOUT Spec Date: 01/26/[address]: Rubio hanson MD. Spec Type: SURGICAL P Received: 01/26/06-2255 Copies to: Lew Mcmanus MD. SPECIMEN 1) BIOPSY SIGMOID COLON 2) BIOPSY RECTUM HISTORY CLINICAL INFORMATION: Patient with bloody diarrhea and prior history of ? colitis for 2-3 months GROSS DESCRIPTION 1) The specimen is received in formalin labelled "Najma Bond, Bx Sigmoid Colon" and consists of four, 0.1 cm. to 0.2 cm. moore bits. Total, one block. 2) The specimen is received in formalin labelled "Najma Bond, Bx Rectum" and consists of three, 0.2 cm. moore bits. Total, one block. DIAGNOSIS 1) Distal sigmoid colon, biopsy A) Chronic mildly active colitis with rare crypt abscess. B) Reactive glandular atypia. C) No dysplasia or malignancy. 2) Rectum, biopsy - A) Chronic mildly active colitis with rare crypt abscess. B) Reactive glandular atypia. C) No dysplasia or malignancy. Signed Electronically signed JERILYN ANN MD 01/27/06 -- -- DEPARTMENT OF PATHOLOGY, [address] [place] [address] [facility] Permit #[id number] Jerilyn Ann II, M.D. Director Giancarlo Gibbons M.D. Assistant Michael howard -- 65 Giardia and cryptosporidium antigen testing performed by immunoassay. If patient is immunocompromised or has traveled to or is from a developing country, a full ova and parasite exam with microscopic (OPMIC) is recommended. All samples will be held one month in case full ova and parasite testing is requested. Contact the Microbiology Department at [phone]. N^NEGATIVE BY IMMUNOASSAY^CRY N^NEGATIVE BY IMMUNOASSAY^MISSY 66 NEGATIVE FOR THE ENTERIC PATHOGENS - SALMONELLA, SHIGELLA, AND YERSINIA VIBRIO AND E. COLI 0157 NOT ROUTINELY TESTED FOR IN A STOOL CULTURE. PLEASE SUBMIT SAMPLE WITH SPECIFIC REQUEST FOR DESIRED ORGANISM(S). 67 NO GROWTH OF CAMPYLOBACTER AFTER 48 HOURS 68 NO PATHOGENS TO DATE FINAL REPORT PENDING COMPLETION OF INCUBATION PERIOD 69 CHAS VALUE=1.86 ( OF 03-21-02) RECOMMENDED INR FOR PATIENTS ON ORAL ANTICOAGULANTS PROPHYLAXIS: 2.0-3.0 TREATMENT OF THROMBOSIS 2.0-3.0 PREVENTION OF EMBOLISM 2.0-3.0 PREVENTION OF EMBOLISM FROM PROSTHETIC HEART VALVES 2.5-3.5 Procedures Date CPT Code Description Status 12/29/2017 Mammogram Completed 03/25/2017 Colonoscopy Completed 08/12/2016 Mammogram Completed 2015 94344 Finger Or Heel Stick Completed 08/01/2015 Colonoscopy Completed 07/26/2015 Mammogram Completed 06/20/2015 72439 Pulse Oximetry Completed 05/07/2015 18232 Electrocardiogram Complete Completed 06/29/2014 Mammogram Completed 03/15/2013 50355 Nebulizer Treatment Completed 03/10/2013 74683 Pulse Oximetry Completed 05/04/2012 05884 Pulse Oximetry Completed 05/16/2011 Mammogram Completed 11/28/2009 Mammogram Completed 04/25/2009 Colonoscopy Completed 08/09/2008 Mammogram Completed 05/10/2007 Mammogram Completed 01/26/2006 Colonoscopy Completed 08/04/2005 Colonoscopy Completed 05/11/2001 81278 Pulse Oximetry Completed 10/15/1998 79530 Electrocardiogram Interpretation & Report Only Completed Encounters Type Date Location Provider CPT E/M Dx Office Visit 03/04/2017 9:40a Main Office Lew Mcmanus M.D. 32554 R63.4 R11.0 E11.9 M54.89 Office Visit 01/21/2017 1:20p Main Office Lew Mcmanus M.D. 39804 R63.4 I95.89 Office Visit 12/31/2016 2:10p Main Office Lew Mcmanus M.D. 28115 R11.0 R11.10 E11.9 Z23 Office Visit 12/12/2016 2:00p Main Office Lew Mcmanus M.D. 45383 R11.0 R11.10 E11.9 M54.5 Office Visit 12/02/2016 1:20p [facility] Lew Mcmanus M.D. 77707 R11.0 E11.9 M10.9 G47.00 Office Visit 06/30/2016 3:00p [facility] Shobhamary House [facility] 44848 F41.9 D48.5 Office Visit 06/20/2016 1:20p Main Office Lew Mcmanus M.D. 09355 H25.23 M54.31 J44.9 E11.9 Z01.818 Office Visit 10/15/2015 9:20a Main Office Lew Mcmanus M.D. 53624 K85.9 Office Visit 2015 1:20p Main Office Lew Mcmanus M.D. 91476 M54.5 E11.9 Office Visit 07/11/2015 9:30a Main Office Lew Mcmanus M.D. 78502 J44.9 E11.9 Office Visit 06/20/2015 1:40p Main Office Lew Mcmanus M.D. 52473 J06.9 J44.9 Office Visit 05/16/2015 1:40p Main Office Lew Mcmanus M.D. 59656 M54.31 Office Visit 05/07/2015 2:40p Main Office Lew Mcmanus M.D. 98553 M25.50 E11.9 M54.9 M94.0 R10.13 M25.511 Office Visit 05/13/2014 9:30a Main Office Lew Mcmanus M.D. 60844 780.79 Office Visit 03/15/2013 1:30p Main Office Nova Stevenson, [facility] [address]2224 466.0 786.2 Office Visit 03/10/2013 11:00a Main Office Lew Mcmanus M.D. 92246 466.0 Office Visit 05/04/2012 2:30p Main Office Darlene PatDontae 04591 466.0 Office Visit 08/01/2011 1:40p Main Office Lew Mcmanus M.D. 11579 782.1 780.79 Office Visit 10/16/2010 2:00p Main Office Lew Mcmanus M.D. 66359 782.1 Office Visit 06/03/2010 1:20p Main Office Lew Mcmanus M.D. 88634 724.5 719.44 305.1 Office Visit 10/23/2008 3:10p Main Office Lew Mcmanus M.D. 72553 729.1 724.5 Office Visit 09/14/2008 1:00p Main Office Darlene MenjivarDontae wilkins 79461 843.9 Office Visit 08/15/2008 10:45a [facility] Office Karin RicaDontae mulligan 92228 461.9 477.9 Office Visit 05/22/2008 2:40p Main Office Lew Mcmanus M.D. 53455 401.9 782.1 Office Visit 04/30/2005 6:15p Main Office Dontae Mcmullen 74661 401.9 Office Visit 12/06/2003 2:10p Main Office Lew Mcmanus M.D. 58673 995.3 401.9 Office Visit 10/13/2002 3:00p [facility] Office Madhu Onofre M.D. 22071 726.10 Office Visit 07/06/2002 1:00p Main Office Lew Mcmanus M.D. 04853 401.1 461.9 Office Visit 05/11/2001 4:40p Main Office Eugene Contreras M.D. 89096 Office Visit 11/03/2000 9:30a Main Office Shobha House [facility] [address] Plan of Care Future Appointment(s):04/12/2018 1:00 pm - Lew Mcmanus M.D. at Main Cresef3503/12/2018 - Kimberly Workman, NPR50.9 Fever, unspecifiedNew Labs: Influenza A&B-fmaComments:Tylenol or Ibuprofen for fever/painR11.0 NauseaComments:increase fluids BRAT dietJ02.9 Acute pharyngitis, unspecifiedNew Medication:Augmentin 875-125 mgComments:patient was instructed to call or return if symptoms did not improve hold off 2 days, if worsening start Abx, if improving hold off on taking itAllComments:~B_~U_Medication Management~b_~u_ Patient Understands medications he 's taking? Yes No Are there Barriers to Adherence? Yes No Has the patient been asked about herbal supplements and therapies, and OTC meds? Yes No ~B_~U_Care Plan~b_~ u_1. Patient has been queried about patient's goals/preferences and functional/ lifestyle goals at relevant visits. If relevant, describe: na2. Treatment goals as explained to the patient: above3. Are there barriers to meeting treatment goals? Yes No If Yes, please describe:4. Self-Management goals as described to the patient:Yes NoAs always, we strongly encourage a healthy diet and making physical activity a part of your every day life. If you have questions about how or where to start, please contact the office.
--- NOTE | 2018-03-29 13:25 | ED ---
Dizziness - HPI Summary HPI Summary: A 72 y/o female presents to [facility] with a chief complaint of dizziness around 14: 00 03/28/18. She claims that the night of 03/28/18 she fell when taking a shower and hit her head. She denies LOC. She rates her pain as a 0/10. She reports that she has been off balance claiming that it feels "like I am drunk" and also c/o lightheadedness. She claims that she has had double/blurred vision every morning but it clears up throughout the day. She reports cataract surgery. She denies speech trouble or N/V. She had a short ringing in her ear which has since resolved. The patient reports that for a short period of time it felt like the room was spinning. Being in an upward position aggravates her pain. Patient has a Hx of foot drop. - History Of Current Complaint Chief Complaint: EDDizziness Stated Complaint: LIGHT HEADED/HEAD INJURY Time Seen by Provider: 03/29/18 13:16 Hx Obtained From: Patient Onset/Duration: Still Present, Suddenly Timing: Hours Severity Initially: Mild Severity Currently: Mild Character: Room Spinning Aggravating Factor(s): Position Change - sitting upright Alleviating Factor(s): Nothing Associated Signs And Symptoms: Negative: Nausea, Vomiting, Visual Changes, Fever - Allergies/Home Medications Allergies/Adverse Reactions: Allergies Allergy/AdvReac Type Severity Reaction Status Date / Time codeine Allergy Severe Hives Verified 03/29/18 12:26 Home Medications: Home Medications Mesalamine (NF) [Lialda (NF)] 2.4 gm PO DAILY 03/29/18 [History Confirmed ] Multivitamins/Minerals TAB* [Theragran/minerals TAB*] 1 tab PO DAILY 03/29/18 [ History Confirmed 03/29/18] Pregabalin CAP(*) [Lyrica CAP(*)] 50 mg PO TID 03/29/18 [History Confirmed 03/29] PMH/Surg Hx/FS Hx/Imm Hx Endocrine/Hematology History: Denies: Hx Diabetes, Hx Thyroid Disease Cardiovascular History: Reports: Hx Hypertension Denies: Hx Congestive Heart Failure, Hx Pacemaker/ICD, Other Cardiovascular Problems/Disorders Respiratory History: Reports: Hx Chronic Obstructive Pulmonary Disease (COPD), Other Respiratory Problems/Disorders - pleurisy, once; bronchitis once. Denies: Hx Asthma, Hx Pneumonia GI History: Reports: Hx Gastroesophageal Reflux Disease, Other GI Disorders - ulcerative colitis History: Reports: Other Problems/Disorders - overactive bladdder Denies: Hx Renal Disease Musculoskeletal History: Reports: Hx Arthritis, Hx Back Problems - sx for disc, spinal stenosis Sensory History: Reports: Hx Cataracts - bilat, Hx Contacts or Glasses, Hx Glaucoma - mild Denies: Hx Deafness, Hx Hearing Aid Opthamlomology History: Reports: Hx Cataracts - bilat, Hx Contacts or Glasses, Hx Glaucoma - mild Neurological History: Denies: Hx CVA, Hx Migraine, Hx Seizures, Hx Transient Ischemic Attacks (TIA) Psychiatric History: Reports: Hx Anxiety, Hx Depression - for a year after 's , Hx Substance Abuse - tobacco Denies: Hx Panic Disorder - Cancer History Hx Chemotherapy: No Hx Radiation Therapy: No - Surgical History Surgery Procedure, Year, and Place: LOW BACK SURGERY 2010(2 SURGERIES 1 DAY APART), WRIST NERVE DAMAGE, FOREIGN OBJECT IN FOOT(TOOTHPICK). Lumbar fusion 2016 ([place]) Hx Anesthesia Reactions: No Infectious Disease History: No Infectious Disease History: Denies: Traveled Outside the [place] in Last 30 Days - Family History Known Family History: Positive: Other - Strabismus, cataract - Social History Alcohol Use: None Hx Substance Use: No Substance Use Type: Reports: Prescribed Substance Use Comment - Amount & Last Used: narcotics Hx Tobacco Use: Yes Smoking Status (MU): Former Smoker Type: Cigarettes Amount Used/How Often: 1.5 ppd Length of Time of Smoking/Using Tobacco: 29 years Have You Smoked in the Last Year: No Review of Systems Negative: Fever Negative: Blurred Vision Negative: Vomiting, Nausea Neurological: Negative - trouble with speech, Other - positive: dizziness, lightheadedness Negative: Syncope All Other Systems Reviewed And Are Negative: Yes Physical Exam - Summary Physical Exam Summary: Appearance: The patient is well-nourished in no acute distress and in no acute pain. Skin: The skin is warm and dry and skin color reflects adequate perfusion. HEENT: The head is normocephalic and atraumatic. The pupils are equal and reactive. The conjunctivae are clear and without drainage. Nares are patent and without drainage. Mouth reveals moist mucous membranes and the throat is without erythema and exudate. The external ears are intact. The ear canals are patent and without drainage. The tympanic membranes are intact. Neck: The neck is supple with full range of motion and non-tender. There are no carotid bruits. There is no neck vein distension. Respiratory: Chest is non-tender. Lungs are clear to auscultation and breath sounds are symmetrical and equal. Cardiovascular: Heart is regular rate and rhythm. There is no murmur or rub auscultated. There is no peripheral edema and pulses are symmetrical and equal. Abdomen: The abdomen is soft and non-tender. There are normal bowel sounds heard in all four quadrants and there is no organomegaly palpated. Musculoskeletal: There is no back tenderness noted. Extremities are non-tender with full range of motion. There is good capillary refill. There is no peripheral edema or calf tenderness elicited. Neurological: Intention tremor. Unsteady on her feet. Patient is alert and oriented to person, place and time. The patient has symmetrical motor strength in all four extremities. Cranial nerves are grossly intact. Deep tendon reflexes are symmetrical and equal in all four extremities. Psychiatric: The patient has an appropriate affect and does not exhibit any anxiety or depression. Triage Information Reviewed: Yes Vital Signs On Initial Exam: Initial Vitals Temp Pulse Resp BP Pulse Ox 97.6 F 66 20 152/100 96 03/29/18 12:05 03/29/18 12:05 03/29/18 12:05 03/29/18 12:05 03/29/18 12:05 Vital Signs Reviewed: Yes - Kike Coma Scale Best Eye Response: 4 - Spontaneous Best Motor Response: 6 - Obeys Commands Best Verbal Response: 5 - Oriented Coma Scale Total: 15 Diagnostics - Vital Signs Vital Signs Temp Pulse Resp BP Pulse Ox 03/29/18 12:05 97.6 F 66 20 152/100 96 - Laboratory Result Diagrams: 03/29/18 13:49 03/29/18 13:49 Lab Statement: Any lab studies that have been ordered have been reviewed, and results considered in the medical decision making process. - Radiology CXR Summary of Radiographic Findings: NO ACTIVE CARDIOPULMONARY DISEASE. ED provider has reviewed this imaging report. - CT Brain CT Interpretation Completed By: Radiologist Summary of CT Findings: 1. NO EVIDENCE FOR GROSS ACUTE INFARCT, MASS EFFECT OR HEMORRHAGE. 2. FINDINGS SUGGESTIVE OF MILD CHRONIC SMALL VESSEL ISCHEMIC CHANGES. ED provider has reviewed this imaging report. - EKG 13:37 Cardiac Rate: NL - 64 bpm EKG Rhythm: Sinus Rhythm Summary of EKG Findings: Normal sinus rhythm at 64 bpm, LAD. Re-Evaluation - Re-Evaluation First Eval Re-Evaluation Time: 15:08 Change: Unchanged Comment: Patient is unsteady on her feet with a wide based gait. Dizzy Course/Dx - Course Course Of Treatment: Ms. Bond presented complaining of about 24 hours of balance issues and ataxia. She did have one episode of a humming tinnitus yesterday that was short period. She gets a little bit of spinning sensation when she first lays down. NIH stroke scale was 0. Her gait was wide-based and certainly very unsteady. There was a hint of upper extremity dysmetria but it may just be that she's got a little bit of an intentional tremor. Because of the length of time and then low NIH stroke scale, a code rosas was not called however she was sent for a CT scan, ecg and labs. Her preliminary workup is negative and Dr. Moffett for neurology and Dr. Caceres for hospitalists were contacted for further evaluation. - Diagnoses Provider Diagnoses: Ataxia, CVA (cerebrovascular accident) - Provider Notifications Discussed Care Of Patient With: Naomy Caceres Time Discussed With Above Provider: 15:10 Instructed by Provider To: Admit As Inpatient - Critical Care Time Critical Care Time: 30-74 min Discharge - Sign-Out/Discharge Documenting (check all that apply): Patient Departure - Admit - Discharge Plan Condition: Fair Disposition: ADMITTED TO [facility] Referrals: Lew Mcmanus MD [Primary Care Provider] - - Billing Disposition and Condition Condition: FAIR Disposition: Admitted to [facility] - Attestation Statements Document Initiated by Marandaibe: Yes Documenting Scribe: Wolf Perry Provider For Whom Rene is Documenting (Include Credential): Eduardo Young MD Scribclaudette Attestation: I, Wolf Perry, scribed for Eduardo Young MD on 03/29/18 at 1709. Scribe Documentation Reviewed: Yes Provider Attestation: The documentation as recorded by the Wolf durant accurately reflects the service I personally performed and the decisions made by me, Eduardo Young MD Status of Scribe Document: Viewed
[2018-03-29 14:00] LABS: ABS Basophils 0.1 10^3/ul (0-0.2); ABS Eosinophils 0.3 10^3/ul (0-0.6); ABS Monocytes 0.8 10^3/ul (0-0.8); ABS Neutrophils 5.5 10^3/ul (1.5-7.7); ABS Nucleated RBC 0 10^3/ul; Eosinophil % 2.9 %; Hematocrit 40 % (35-47); Hemoglobin 13.3 g/dl (12.0-16.0); Lymphocyte % 23.5 %; Mean Corpuscular HGB Conc 33 g/dl (31-36); Mean Corpuscular Hemoglobin 26 pg (27-31); Mean Corpuscular Volume 78 fL (80-97); Nucleated Red Blood Cells % 0; Platelet Count 419 10^3/ul (150-450); Red Blood Count 5.17 10^6/ul (4.00-5.40); Red Cell Distribution Width 16 % (10.5-15); White Blood Count 8.6 10^3/ul (3.5-10.8)
[2018-03-29 14:11] LABS: INR 1.03 (0.77-1.02)
[2018-03-29 14:18] LABS: Albumin/Globulin Ratio 1.4 (1-3); BUN/Creatinine Ratio 14.6 (8-20); Calcium 9.7 mg/dL (8.6-10.3); EGFR Non-African American 57.1 (>60); Globulin 2.9 g/dL (2-4); Potassium 3.7 mmol/L (3.5-5.0); Total Bilirubin 0.5 mg/dL (0.2-1.0); Total Protein 6.9 g/dL (6.4-8.9)
[2018-03-29 15:32] LABS: TSH (Thyroid Stimulating Horm) 1.32 mcIU/mL (0.34-5.60)
[2018-03-29 15:41] LABS: Urine Appearance Cloudy; Urine Bacteria Absent (Absent); Urine Bilirubin Negative (Negative); Urine Blood Negative (Negative); Urine Color Straw; Urine Glucose Negative (Negative); Urine Ketones Negative (Negative); Urine Nitrite Negative (Negative); Urine Protein Negative (Negative); Urine Red Blood Cell Absent (Absent); Urine Specific Gravity 1.005 (1.010-1.030); Urine Urobilinogen Negative (Negative); Urine White Blood Cell 1+(6-10/hpf) (Absent)
[2018-03-29] MEDS ORDERED: Acetaminophen TAB* 325 MG PO PRN (17:30)
[2018-03-29] MEDS ORDERED: Magnesium Hydroxide LIQ* 30 ML UDC PO PRN (17:30)
[2018-03-29] MEDS ORDERED: Iodixanol* (CONTRAST) 320 MG/ML 100 ML SDV IV ONE (19:14)
--- NOTE | 2018-03-29 19:14 | CONS ---
CC: Dr. Mcmanus * CONSULTATION REPORT: DATE OF CONSULT: 03/29/18 PRIMARY CARE PHYSICIAN: Dr. Mcmanus. REASON FOR CONSULT: Ataxia. HISTORY OF PRESENT ILLNESS: Ms. Bond is a very nice 72-year-old female with a history of ulcerative colitis, diabetes, spinal stenosis status post lumbar laminectomy several years ago, herpes, COPD, hypertension, who was in her usual state of health when last night, she developed rather sudden onset of difficulty walking. She states that when she got up from the bed, she felt unstable starting at around 2 p.m. She tried to take a shower last night and fell hitting her head with a bruise on the back of her head. She had no loss of consciousness at that time. She notes feeling off balance prior to falling and hitting her head. She notes feeling "off-center" like she has had "too much to drink." She initially had some blurry vision. which has improved. No significant double vision. She notes no problems speaking or swallowing. No vision loss. No facial asymmetry that she is aware of. No focal numbness, tingling, or weakness in her arms or legs. No recent illnesses. No ringing in her ears. No hearing loss. She denies any significant room spinning, although she says initially it was moving. Now, she feels more unsteady when she tries to walk. In the ER, the ER physician tried to stand her up, but she was too unsteady and could not walk. She does have a history of a right drop foot related to her prior back surgery. She also has a history of some neuropathy in her feet bilaterally. She denies any bladder or bowel problems. PAST MEDICAL HISTORY: As noted above. PAST SURGICAL HISTORY: Includes low back surgery several times in 2010 and again lumbar fusion in 2017. MEDICATIONS: At home include: 1. Trospium. 2. Triamterene/hydrochlorothiazide. 3. Pregabalin. 4. Omeprazole. 5. Multivitamin. 6. Theragran. 7. Mesalamine. She does not normally take an aspirin. ALLERGIES: CODEINE. FAMILY HISTORY: Significant for coronary artery disease. SOCIAL HISTORY: , with children. She denies any tobacco use, although she was a smoker in the past. She denies any alcohol use. No illicit substance use. Her is at the bedside. PHYSICAL EXAM: Vital Signs: She is afebrile. Heart rate of 72 to 83, blood pressure in the 140s to 160s/90s, O2 sats 97%. General: She is a well- nourished, well-developed female, in no acute distress. She is lying in her hospital bed. She is pleasant. HEENT: Normocephalic, atraumatic. She does have a sore spot on the posterior aspect of her right scalp. Sclerae anicteric. Mucous membranes are moist. Oropharynx is clear. Nares are patent. Neck: Supple. No thyromegaly. No carotid bruits. No meningismus. Chest: Clear to auscultation bilaterally. Cardiovascular: Regular rate and rhythm. Abdomen: Nontender, nondistended. Extremities: No clubbing, cyanosis , or edema. Skin: Warm and dry with good capillary refill. Neurologic: She is awake, alert, oriented x3. Her speech is slow. There is no dysarthria. Repetition is intact. Recall of recent and remote events is intact. Vocabulary is intact. Her mood is dysthymic. Affect and mood congruent. Cranial Nerves: Pupils are equal, round, and reactive to light and accommodation. Extraocular muscles are intact without nystagmus or diplopia. Facial sensation is intact throughout. Her face is symmetric throughout. Hearing is intact without tinnitus. Her palate raises symmetrically. Tongue is midline. Sternocleidomastoid and trapezius are 5/5. Motor Exam: She is spontaneously moving all extremities. 5/5 throughout. No drift is apparent. Tone and bulk are both normal. Sensation is intact to light touch and pinprick in the upper extremities bilaterally. In the lower extremities, she has loss of all modalities in the feet bilaterally. DTRs were 1+ in the upper extremities bilaterally, 1+ at the patella bilaterally, absent at the ankles. She has a footdrop on the right with AFO in place. Equivocal Babinski's. [id number] and rapid alternating movements were intact. There is no dysmetria or dysdiadochokinesia. Gliz-yc-lhvm intact. Gait: When she stood up, she was very wide based, unsteady. She needs help ambulating. There is no specific ataxic gait. DIAGNOSTIC STUDIES/LAB DATA: Lab work includes a CBC with diff with a MCV of 78 , MCH of 26, RDW of 16. INR of 1.03. Her chemistry is significant for a chloride of 100 and creatinine of 0.96. Lactic acid 1.3. TSH of 1.32. Urine: Trace leukocyte esterase, 1+ WBCs, squamous epithelial present. CT of the head was done, shows no acute abnormalities and mild chronic small vessel ischemic change. Chest x-ray shows no active disease. MRI of the brain pending. ASSESSMENT AND PLAN: Ms. Bond is a 72-year-old female with a history of diabetes, hypertension, multiple back surgeries in the past, drop foot on the right which is chronic in nature, ulcerative colitis, who presented to the hospital with acute onset of some dizziness and unsteadiness that started yesterday. She fell out of the shower yesterday evening and hit her head. No focal findings at that time. She denies any headaches, nausea, vomiting, diarrhea, constipation, vision changes, bladder or bowel incontinence, but she does feel very unsteady when she walks. On examination, significant for unsteady gait, wide based. No vertigo. No nystagmus. Her presentation given the acute onset is worrisome for an acute stroke, possibly cerebellar in nature. Plan is to admit her, get an MRI of the brain without contrast. She had a CT angiogram of the head and neck to look for any large vessel disease or stenosis. Check lab work. We will start her on an aspirin and Plavix today. Continue the Plavix for 30 days and then stop, but continue aspirin afterwards. She needs to be on a statin with good cholesterol control. Would strive for good diabetes control. We will allow her blood pressures at this point to remain in the moderate range until we have an MRI to either confirm or rule out a stroke. Echocardiogram pending. She will need physical therapy and occupational therapy during her hospitalization and may need it long-term. Unfortunately, she is well outside of the 24-hour window for any interventional treatment as her symptoms began at around 2 p.m. yesterday. Other considerations would be benign positional vertigo, although she has no nystagmus. No nausea or vomiting. She does have a history of peripheral neuropathy with right foot drop on examination, but I do not think it would cause her current presentation. We will continue to follow her closely and make further recommendations as necessary. Thank you for the opportunity to participate in the care of this interesting patient. [id number]/[facility] #: [id number] PHILL
[2018-03-29] MEDS: NS 0.9% 1000 ML* 1,000 ML IV SCH (19:44)
--- NOTE | 2018-03-29 20:30 | HP ---
HISTORY AND PHYSICAL: DATE OF ADMISSION: 03/29/18 PRIMARY CARE PROVIDER: Dr. Lew Mcmanus. OTHER PROVIDER: Dr. Cheikh Moffett. ATTENDING PHYSICIAN: Dr. Naomy Caceres * (dictated by SAVANNAH Slater). CHIEF COMPLAINT: Dizziness. HISTORY OF PRESENT ILLNESS: Ms. Bond is a 72-year-old female with a past medical history of hypertension, COPD, gastroesophageal reflux disease, ulcerative colitis, overactive bladder, spinal stenosis, and cataracts, which she had surgery on, who presented to the ER today with complaints of dizziness and unsteady gait. She states that since yesterday afternoon, she has been feeling dizzy and unsteady on her feet. Yesterday, while showering, she fell and hit her head. The patient states that she did not lose consciousness during the incident. She states that she becomes more dizzy when she sits up quickly and when sitting up after waking in the morning. She said that the dizziness decreases when she is at rest and there is no movement. She states that she has never had any symptoms like this before. She does admit to having ringing in ear once yesterday, but it only lasted for a second. She states that her upper extremity care advocate strength is decreased and the right is worse than the left. Yesterday, she felt like she had picked an object up and when she looked down, she realized she had not. She is being treated for this, most recently she had a cortisone shot in her right hand recently. These symptoms have been ongoing since she had her surgery on her back for her spinal stenosis , which was approximately 1 1/2 years ago. She also has a history of drop foot for the last year and a half for which she wears a brace. This has been a symptom of her spinal surgery. The patient states that she has no double vision , but for approximately 3 months, she has blurred vision in the morning only that resolves approximately 30 minutes after waking. She has had no difficulty with speech or swallowing. She denies any issues with movement or memory, not including her history of dropped foot. She denies any focal weakness. She states that there is no change in sensory loss stating that she has neuropathy in both of her feet, which is unchanged. While in the ER, Neurology was consulted and the patient received a full workup to rule out CVA. CT of the brain without contrast was within normal limits. Portable chest x- ray shows no active cardiopulmonary disease and MRI of the brain was also within normal limits. All of these tests are discussed below. Hospitalist service was asked to evaluate for admission. PAST MEDICAL HISTORY: 1. Hypertension. 2. COPD for which the patient is on no medications. 3. Gastroesophageal reflux disease. 4. Ulcerative colitis. 5. Overactive bladder. 6. Spinal stenosis. 7. Cataracts, the patient had surgery on both eyes. 8. Anxiety. 9. Depression. PAST SURGICAL HISTORY: 1. Low back surgery in 2010. 2. Wrist nerve damage. 3. Lumbar fusion in 2017. HOME MEDICATIONS: 1. Pregabalin 50 mg t.i.d. 2. Mesalamine 2.4 g p.o. daily. 3. Multivitamin 1 tab p.o. daily. 4. Trospium 20 mg p.o. b.i.d. 5. Triamterene/HCTZ 37.5/25 one cap p.o. daily. 6. Omeprazole 20 mg p.o. daily. ALLERGIES: CODEINE, hives. FAMILY HISTORY: Paternal grandmother of old age. All 3 of her other grandparents of cancer, although the patient is unsure of what kind of cancer. The patient's mother of heart disease at the age of 65; she had a history of mitral valve replacement. Father committed suicide. She has 1 sister with breast cancer and 1 sister with lung cancer. She has 1 son with Crohn's and the other son is healthy. SOCIAL HISTORY: The patient used to smoke half a pack of cigarettes per day for 29 years. She denies drug or alcohol use. She has 2 sons and is . She lives at home with her . In the case that she cannot make medical decisions for herself; her , Krishna Bond, has been appointed as her decision maker. REVIEW OF SYSTEMS: A 10-point review of systems was performed and all the pertinent positives and negatives are in the HPI. All other systems are negative. PHYSICAL EXAMINATION GENERAL: Ms. Bond is a well-developed, well-nourished, elderly white woman, who is sitting up in bed, in no acute distress. Appears her stated age. VITAL SIGNS: Temperature 97.6, heart rate is 83, respiratory rate is 16, blood pressure is 150/94. HEENT: Visual le are grossly intact. Pupils equally round and reactive to light and accommodation. Extraocular movements intact. Sclerae without icterus. The patient has slight nystagmus to the left. Hearing is grossly intact. External auditory canal is patent, free of cerumen. TMs intact with visible landmarks. Nares patent and membranes moist. Oral mucous membranes moist and without lesion. NECK: Full range of motion. Thyroid not palpable. Trachea midline. No lymphadenopathy. RESPIRATORY: Symmetrical chest expansion without use of accessory muscles. LUNGS: Clear to auscultation bilaterally. No rhonchi, wheezes, or rubs. CARDIOVASCULAR: Regular rate and rhythm. S1, S2 present. No murmurs, rubs, clicks, or gallops. No JVD. ABDOMEN: Soft, nontender to palpation, nondistended. Bowel sounds in all 4 quadrants. No hepatosplenomegaly. MUSCULOSKELETAL: Full range of motion. No pain or deformities. EXTREMITIES: Skin is warm and smooth bilaterally. No edema. No clubbing or cyanosis. Pedal pulses are 2+ bilaterally. NEURO: A and O x3. Cranial nerves II through XII grossly intact. The patient moves all extremities. Motor strength is 5/5 in upper and lower extremities bilaterally except right foot with foot drop shows weakness. Customer Service Representative Teller strength is 3 /5. Gait is wide and unsteady. SKIN: Grossly intact without lesions. DIAGNOSTIC STUDIES/LAB DATA: WBC 8.6, RBC 5.17, Hgb 13.3, Hct 40. INR 1.03. Sodium 139, potassium 3.7, chloride 100, carbon dioxide 29, BUN 14, creatinine 0.96, estimated GFR 57.1, lactic acid 1.3. TSH 1.32. Urinalysis shows trace leukocyte esterase, urine white blood cells 1+, squamous epithelial cells. CT of the brain without contrast, impression: No evidence for gross acute infarct, mass effect, or hemorrhage. Findings suggestive of mild chronic small vessel ischemic changes. Chest x-ray, impression: No active cardiopulmonary disease. MRI brain without contrast, impression: No evidence for acute intracranial abnormality. Findings suggestive of mild chronic small vessel ischemic changes , small effusions within the mastoid air cells. ASSESSMENT AND PLAN: Ms. Bond is a 72-year-old female with a past medical history of hypertension, chronic obstructive pulmonary disease, gastroesophageal reflux disease, ulcerative colitis, overactive bladder, spinal stenosis, anxiety, and depression, who presents to the ER today with a complaint of dizziness. The patient will be admitted for observation for the followin. Dizziness, unsteady gait. The patient will be admitted and placed on tele. Neurology will continue to follow the patient. Due to the positional nature and the negative CT and MRI, the patient likely has vertigo. CTA of the head and neck has been ordered. B12, folate, TSH, free T4 have also been ordered. The patient will be given 2 bags of normal saline. She will be started on 81 mg of aspirin. We will do neuro checks q.4 hours and a nurse swallow study. PT and OT will be consulted. The patient will also be placed on meclizine 12.5 mg p.o. q.8 hours to see if this resolves. 2. Hypertension. At the current time, we will discontinue her triamterene/ HCTZ in order to optimize cerebral blood flow. Continue to assess blood pressure. 3. Gastroesophageal reflux disease. Continue omeprazole 20. 4. Ulcerative colitis. Continue mesalamine. 5. Overactive bladder. Continue trospium. 6. FEN. Nurse swallow study will be performed. Heart-healthy diet to follow. 7. Code status. Full code. 8. DVT prophylaxis. Based on the DVT Risk Assessment, the patient is moderate risk. Heparin 5000 subcu q.8 hours has been ordered. TIME SPENT: Approximately 60 minutes was spent on this admission, greater than half of that time was spent with the patient and caregiver obtaining the history , performing physical exam, and reviewing the plan of care. The case has been reviewed with my attending, Dr. Caceres, who is in agreement with the plan of care. SAVANNAH GARCIA [id number]/[facility] #: [id number] PHILL
[2018-03-29] MEDS: Meclizine TAB* 12.5 MG PO SCH (21:42)
[2018-03-29] MEDS: Pregabalin CAP(*) 50 MG PO SCH (21:43)
[2018-03-29] MEDS: Docusate CAP* 100 MG PO SCH (21:43)
[2018-03-29] MEDS: Heparin VIAL(*) 5000 UNITS/ML VIAL (FIVE THOUSAND) SUBCUT SCH (21:44)
[2018-03-29] MEDS: Trospium (NF) 20 MG TAB PO SCH (21:47)
[2018-03-30] MEDS ORDERED: oxyCODONE SR TAB(*) 15 MG TAB.SR PO ONE (00:55)
[2018-03-30] MEDS: NS 0.9% 1000 ML* 1,000 ML IV SCH (03:15)
[2018-03-30] MEDS ORDERED: NS 0.9% 1000 ML* 1,000 ML IV SCH (04:00)
[2018-03-30] MEDS: Heparin VIAL(*) 5000 UNITS/ML VIAL (FIVE THOUSAND) SUBCUT SCH ×2 (05:39→17:01)
[2018-03-30] MEDS: Meclizine TAB* 12.5 MG PO SCH ×2 (05:39→17:04)
[2018-03-30 06:43] LABS: ABS Basophils 0.1 10^3/ul (0-0.2); ABS Eosinophils 0.5 10^3/ul (0-0.6); ABS Lymphocytes 3.4 10^3/ul (1.0-4.8); ABS Monocytes 0.9 10^3/ul (0-0.8); ABS Neutrophils 2.8 10^3/ul (1.5-7.7); ABS Nucleated RBC 0 10^3/ul; Hematocrit 37 % (35-47); Hemoglobin 12.1 g/dl (12.0-16.0); Lymphocyte % 44.9 %; Mean Corpuscular HGB Conc 33 g/dl (31-36); Mean Corpuscular Hemoglobin 26 pg (27-31); Mean Corpuscular Volume 78 fL (80-97); Mean Platelet Volume 8.5 fL (7.4-10.4); Nucleated Red Blood Cells % 0; Platelet Count 358 10^3/ul (150-450); Red Blood Count 4.69 10^6/ul (4.00-5.40); Red Cell Distribution Width 16 % (10.5-15); White Blood Count 7.7 10^3/ul (3.5-10.8)
[2018-03-30 06:58] LABS: Anion Gap 8 mmol/L (2-11); BUN/Creatinine Ratio 14.1 (8-20); Blood Urea Nitrogen 13 mg/dL (6-24); CO2 Carbon Dioxide 28 mmol/L (22-32); Calcium 9.1 mg/dL (8.6-10.3); Chloride 104 mmol/L (101-111); Cholesterol 197 mg/dL; Glucose 81 mg/dL (70-100); HDL Cholesterol 62.5 mg/dL; LDL Cholesterol 116 mg/dL; Potassium 3.4 mmol/L (3.5-5.0); Sodium 140 mmol/L (135-145); Triglycerides 92 mg/dL
[2018-03-30 07:15] LABS: TSH (Thyroid Stimulating Horm) 2.76 mcIU/mL (0.34-5.60)
[2018-03-30 07:17] LABS: Free T4 0.83 ng/dL (0.61-1.12)
[2018-03-30 07:26] LABS: Folate > 20.00 ng/mL (>3.99)
--- NOTE | 2018-03-30 08:09 | PN ---
Subjective Date of Service: 03/30/18 Length of Stay: 1 Days Neurology is following for dizziness Interval History: No new issues overnight, although there is a more vertiginous description this am with positional dizziness more prominent. She continues to feel unsteady on her feet. She denies any nausea or vomiting but feels the room spinning, especially when she moves or goes from sitting to standing. She has chronic numbness and tingling in her hands and feet with chronic foot drop on the right. No significant headaches or visual changes, no chest pain, no shortness of air. She has been very unsteady on her feet overnight. I spoke with the night nurse who confirmed no new issues. MRI: chronic white matter changes, no acute issues, no strokes CTA: No significant stenosis, no VB disease Telemetry: SR Objective Active Medications: Acetaminophen (Tylenol Tab*) 650 mg PO Q4H PRN PRN Reason: FEVER/PAIN Last Admin: 03/29/18 23:04 Dose: 650 mg Aspirin (Aspirin Ec Tab*) 81 mg PO DAILY [facility] Docusate Sodium (Colace Cap*) 100 mg PO BID [facility] Last Admin: 03/29/18 21:43 Dose: 100 mg Heparin Sodium (Porcine) (Heparin Vial(*)) 5,000 units SUBCUT Q8HR [facility] Last Admin: 03/30/18 05:39 Dose: 5,000 units Sodium Chloride (Ns 0.9% 1000 Ml*) 1,000 mls @ 125 mls/hr IV PER RATE [facility] Stop: 03/30/18 11:59 Last Admin: 03/30/18 05:30 Dose: 125 mls/hr Magnesium Hydroxide (Milk Of Magnesia Liq*) 30 ml PO Q4H PRN PRN Reason: CONSTIPATION Meclizine HCl (Antivert Tab*) 12.5 mg PO Q8HR [facility] Last Admin: 03/30/18 05:39 Dose: 12.5 mg Mesalamine (Mesalamine Dr Cap*) 2,400 mg PO DAILY [facility] Multivitamins/Minerals (Theragran/Minerals Tab*) 1 tab PO DAILY [facility] Pantoprazole Sodium (Protonix Tab (Nf)) 40 mg PO DAILY [facility] Pregabalin (Lyrica Cap(*)) 50 mg PO TID [facility] Last Admin: 03/29/18 21:43 Dose: 50 mg Trospium (Sanctura (Nf)) 20 mg PO BID [facility] Last Admin: 03/29/18 21:47 Dose: Not Given Vital Signs 03/29/18 03/29/18 03/29/18 12:05 13:23 13:26 Temperature 97.6 F Pulse Rate 66 64 68 Respiratory 20 16 16 Rate Blood Pressure 152/100 160/91 (mmHg) O2 Sat by Pulse 96 99 97 Oximetry 03/29/18 03/29/18 03/29/18 13:28 13:30 13:44 Temperature Pulse Rate 87 Respiratory 22 16 Rate Blood Pressure 141/97 150/94 150/94 (mmHg) O2 Sat by Pulse Oximetry 03/29/18 03/29/18 03/29/18 14:00 14:57 15:00 Temperature Pulse Rate 68 67 68 Respiratory 16 15 19 Rate Blood Pressure 152/87 (mmHg) O2 Sat by Pulse 97 91 96 Oximetry 03/29/18 03/29/18 03/29/18 15:28 17:52 17:53 Temperature Pulse Rate 66 69 Respiratory 15 15 14 Rate Blood Pressure 142/93 153/101 (mmHg) O2 Sat by Pulse 97 98 Oximetry 03/29/18 03/29/18 03/29/18 18:00 18:28 18:46 Temperature 97.4 F Pulse Rate 78 Respiratory 31 16 18 Rate Blood Pressure 151/110 154/83 (mmHg) O2 Sat by Pulse 99 Oximetry 03/29/18 03/29/18 03/30/18 18:51 21:43 00:24 Temperature 97.6 F 97.9 F Pulse Rate 78 84 Respiratory 16 18 16 Rate Blood Pressure 151/110 125/78 (mmHg) O2 Sat by Pulse 98 98 Oximetry 03/30/18 03/30/18 01:05 03:28 Temperature 98.3 F Pulse Rate 64 Respiratory 18 16 Rate Blood Pressure 124/67 (mmHg) O2 Sat by Pulse 98 Oximetry Intake and Output Last 24 Hours 03/28/18 03/29/18 03/30/18 03/31/18 06:59 06:59 06:59 06:59 Intake Total 0 Output Total 0 Balance 0 Weight 164 lb 3.2 oz Intake: Oral 0 Output: Urine 0 Other: Estimated Void Medium # Voids 3 Oxygen Devices in Use Now: None Neurology Exam: General: Awake, Alert, Oriented x3 HEENT: Normocephalic/atraumatic, sclera anicteric, mucous membranes moist Neck: Supple, no bruits Chest: Clear to auscultation bilaterally Cardiovascular: Regular rate and rhythm without murmurs, rubs, gallops Abdomen: Soft, nontender/nondistended Extremities: No clubbing, cyanosis, or edema Skin: warm and dry Neurological Findings: Awake, Alert, Oriented x3, very pleasant Speech: fluent without dysarthria, repetition intact Cranial Nerve: PEERL, EOM intact, VFF to confrontation, no nystagmus or diplopia , face symmetric bilaterally, facial sensation intact, hearing intact to finger rub bilaterally, palate elevates symmetrically, tongue midline Motor: 5/5 throughout except RLE: 4/5 proximally, foot drop on the right with no DF, PF 4+/5 Sensation: intact to LT/PP in the hands and feet to ankles bilaterally Deep Tendon Reflex: Absent LEs with equivocal Babinski, 1+ UEs bilaterally, symmetric Mild FtoN tremor bilaterally, no resting tremor, no past pointing Gait: wide based, unsteady and unsure. no AFO so foot drop on the right complicates her walking but seems slightly improved from yesterday. Result Diagrams: 03/30/18 06:15 03/30/18 06:15 Assessment/Plan 72 year old with a history of HTN, UC, GERD, COPD, anxiety and depression, spinal stenosis with chronic right leg numbness and weakness with foot drop, and neuropathy who presents with acute onset of dizziness and difficulty walking with associated room spinning this am. Workup has been negative for acute stroke, VBS, cardiac causes 1. Dizziness: I suspect vertigo, likely BPPV now that workup is negative. --Continue conservative management: Fluids, meclizine --PT/OT to mobilize --Can consider outpatient vestibular rehab if symptoms persist --Has a history of chronic Lumbar radiculopathy and foot drop on the right. AFO , consider outpatient PT --I explained that vertigo will typically resolve over time but that sometimes we need to get specific PT as an outpatient to help. In the meantime, we will manage this with IV fluids and medication. --Recommend replacing B12, low normal. --I will continue to follow.
--- NOTE | 2018-03-30 08:19 | PN ---
Subjective Date of Service: 03/30/18 Interval History: HD # 2 03/30/18 72 yo F with PMH HTN, UC on mesalamine, mixen incon, GERD who is presenting for dizziness. Overnight no acute events. T Max 98.3, HR 64-84 sinus, satting 98% on RA, 125- 148/67-78. Did rec Oxy 15 x 1 overnight for ? pain. UOP x 3 overnight. UA with +1 WBC and trace LE. This morning she reports still feeling unsteady on her feet, she did tolerate a little juice and breakfast and was looking forward to working with PT and OT. We discussed events prior to this hospitalization, she does note that about 2 weeks ago she had a L ear ache that she noted to her PCP, and was noited ot have some fluid behind her ear. She describes a sensation of vertigo this morning with the room spinning around her. Otherwise she is pleasant and has no acute issues or questions, did note meeting with Dr. Moffett MRI: chronic white matter changes, no acute issues, no strokes CTA: No significant stenosis, no VB disease Telemetry: SR Objective Active Medications: Acetaminophen (Tylenol Tab*) 650 mg PO Q4H PRN PRN Reason: FEVER/PAIN Last Admin: 03/29/18 23:04 Dose: 650 mg Aspirin (Aspirin Ec Tab*) 81 mg PO DAILY [facility] Docusate Sodium (Colace Cap*) 100 mg PO BID [facility] Last Admin: 03/29/18 21:43 Dose: 100 mg Heparin Sodium (Porcine) (Heparin Vial(*)) 5,000 units SUBCUT Q8HR [facility] Last Admin: 03/30/18 05:39 Dose: 5,000 units Sodium Chloride (Ns 0.9% 1000 Ml*) 1,000 mls @ 125 mls/hr IV PER RATE [facility] Stop: 03/30/18 11:59 Last Admin: 03/30/18 05:30 Dose: 125 mls/hr Magnesium Hydroxide (Milk Of Magnesia Liq*) 30 ml PO Q4H PRN PRN Reason: CONSTIPATION Meclizine HCl (Antivert Tab*) 12.5 mg PO Q8HR [facility] Last Admin: 03/30/18 05:39 Dose: 12.5 mg Mesalamine (Mesalamine Dr Cap*) 2,400 mg PO DAILY [facility] Multivitamins/Minerals (Theragran/Minerals Tab*) 1 tab PO DAILY [facility] Pantoprazole Sodium (Protonix Tab (Nf)) 40 mg PO DAILY [facility] Pregabalin (Lyrica Cap(*)) 50 mg PO TID [facility] Last Admin: 03/29/18 21:43 Dose: 50 mg Trospium (Sanctura (Nf)) 20 mg PO BID [facility] Last Admin: 03/29/18 21:47 Dose: Not Given Additional Medications: Given Oxy 15mg overnight Vital Signs - 8 hr 03/30/18 03/30/18 03/30/18 00:24 01:05 03:28 Temperature 97.9 F 98.3 F Pulse Rate 84 64 Respiratory 16 18 16 Rate Blood Pressure 125/78 124/67 (mmHg) O2 Sat by Pulse 98 98 Oximetry 03/30/18 07:32 Temperature 97.8 F Pulse Rate 66 Respiratory 20 Rate Blood Pressure 148/67 (mmHg) O2 Sat by Pulse 97 Oximetry Oxygen Devices in Use Now: None Appearance: Pleasant woman in NAD laying in bed Eyes: No Scleral Icterus Ears/Nose/Mouth/Throat: NL Teeth, Lips, Gums, - - NO nystagmus noted on lateral or horizontal gaze Neck: NL Appearance and Movements; NL JVP Respiratory: Symmetrical Chest Expansion and Respiratory Effort, Clear to Auscultation Cardiovascular: NL Sounds; No Murmurs; No JVD, RRR Abdominal: NL Sounds; No Tenderness; No Distention Lymphatic: No Cervical Adenopathy Extremities: No Edema Skin: No Rash or Ulcers Neurological: Alert and Oriented x 3 Result Diagrams: 03/30/18 06:15 03/30/18 06:15 Additional Lab and Data: B12 237, TSH 2.76, Folate > 200 Microbiology and Other Data: UA as above with +LE and 1+ WBC Diagnostic Imaging: MRI: chronic white matter changes, no acute issues, no strokes CTA: No significant stenosis, no VB disease Assess/Plan/Problems-Billing Assessment: 72 yo F with PMH HTN, UC on mesalamine, mixed incon, GERD, COPD, chronic neuropathy who is presenting for positional dizziness. DDX remains BBPV, menieres given tinnitus possible posterior circulation def, less likely CVA given reassuring imaging. She has had a neg MRI and CTA. - Patient Problems (1) Vertigo Current Visit: Yes Status: Acute Code(s): R42 - DIZZINESS AND GIDDINESS SNOMED Code(s): 309814039 Comment: Appears to be BPPV, did have ear infection 2 weeks ago, reassuring head imaging -Work with PT, may benefit from vestibulocular therapy -meclizine PRN -Can d/c as she feels able (2) HTN (hypertension) Current Visit: No Status: Acute Code(s): I10 - ESSENTIAL (PRIMARY) HYPERTENSION SNOMED Code(s): 71422723 Comment: Triamterene and HCTZ as a home med currently held, reasonable to restart tomorrow (3) Ulcerative colitis Current Visit: No Status: Chronic Code(s): K51.90 - ULCERATIVE COLITIS, UNSPECIFIED, WITHOUT COMPLICATIONS SNOMED Code(s): 82768827 Comment: Stable-continue mesalamine (4) Mixed incontinence Current Visit: Yes Status: Acute Code(s): N39.46 - MIXED INCONTINENCE SNOMED Code(s): 207834967 Comment: Home trosprium (5) Neuropathy Current Visit: Yes Status: Acute Code(s): G62.9 - POLYNEUROPATHY, UNSPECIFIED SNOMED Code(s): 592237607 Comment: On standing Pregablin (6) GERD (gastroesophageal reflux disease) Current Visit: Yes Status: Acute Code(s): K21.9 - GASTRO-ESOPHAGEAL REFLUX DISEASE WITHOUT ESOPHAGITIS SNOMED Code(s): 074489237 Comment: Remains on home PPI (7) DVT prophylaxis Current Visit: No Status: Acute Code(s): LNG4765 - SNOMED Code(s): 337364662 Comment: SQ heparin Status and Disposition: Inpatient at this time
[2018-03-30] MEDS ORDERED: Multivitamins/Minerals TAB PO SCH (09:00)
[2018-03-30] MEDS ORDERED: Pantoprazole TAB * 40 MG TAB PO SCH (09:00)
[2018-03-30] MEDS ORDERED: Aspirin EC TAB* 81 MG TAB.EC PO SCH (09:00)
[2018-03-30] MEDS: Pregabalin CAP(*) 50 MG PO SCH ×2 (09:13→17:04)
[2018-03-30] MEDS: Docusate CAP* 100 MG PO SCH (09:13)
[2018-03-30] MEDS: Trospium (NF) 20 MG TAB PO SCH (12:13)
[2018-03-30] MEDS ORDERED: Potassium Chlor TAB* 20 MEQ TAB.ER PO ONE (16:31)
[2018-03-30] MEDS ORDERED: Meclizine TAB* 12.5 MG ONE (16:53)
[2018-03-30 18:04] VITALS: BP 139/74
--- NOTE | 2018-03-30 18:38 | DCNOTE ---
Subjective Date of Service: 03/30/18 Interval History: Discharge Summary History of present illness and hospital course: 72 yo F with PMH HTN, UC on mesalamine, mixed incon, GERD, COPD, chronic neuropathy and pain on pregablin and daily opiate who is presenting for positional dizziness. On presentation to the emergency room patient complained she "felt drunk" while she was walking and noted it was acute onset. She had no change in medications or activities aside from remembering she had an earache about 2 weeks ago. Her VSS, her labs in the emergency room, CBC and CMP were wholly normal, her INR was 1.1, she had a TSH, B12, folate drawn and they were normal. Her physical exam was notable for an unsteady wide based gait with no other specific neurological abnormalities aside from a chronic R foot drop, as a result neurology was consulted to see the patient. She was admitted to the medicine unit for observation while stroke workup including: CTA Brain, MRI Brain, and ECG, pt was also placed on tele while in observation, a UA was collected which appeared healthy and normal. Ultimately her brain imaging came back negative for any acute ischemic event or posterior circulation disorder. Her EKG was unremarkable. Neurology felt her symptoms to be most consistent with positional vertigo and PT and OT were consulted to do teaching and walk with patient. Meclizine was started along with her home medications on 03/30/18 and she progressed in terms of her ability to ambulate and elected to be d/c to home on 03/30/18 with her . She is still unsteady without walker on discharge though she felt she could navigate her home enviorenment safely while she takes medications to help the symptoms of vertigo. She was d/c on home meclizine along with her home medications and instructed to follow up with her primary care provider. Objective Active Medications: Acetaminophen (Tylenol Tab*) 650 mg PO Q4H PRN PRN Reason: FEVER/PAIN Last Admin: 03/29/18 23:04 Dose: 650 mg Aspirin (Aspirin Ec Tab*) 81 mg PO DAILY [facility] Last Admin: 03/30/18 09:13 Dose: 81 mg Docusate Sodium (Colace Cap*) 100 mg PO BID [facility] Last Admin: 03/30/18 09:13 Dose: 100 mg Heparin Sodium (Porcine) (Heparin Vial(*)) 5,000 units SUBCUT Q8HR [facility] Last Admin: 03/30/18 17:01 Dose: 5,000 units Magnesium Hydroxide (Milk Of Magnesia Liq*) 30 ml PO Q4H PRN PRN Reason: CONSTIPATION Meclizine HCl (Antivert Tab*) 25 mg PO Q8HR [facility] Mesalamine (Mesalamine Dr Cap*) 2,400 mg PO DAILY [facility] Last Admin: 03/30/18 09:14 Dose: 2,400 mg Multivitamins/Minerals (Theragran/Minerals Tab*) 1 tab PO DAILY [facility] Last Admin: 03/30/18 09:13 Dose: 1 tab Pantoprazole Sodium (Protonix Tab (Nf)) 40 mg PO DAILY [facility] Last Admin: 03/30/18 09:13 Dose: 40 mg Pregabalin (Lyrica Cap(*)) 50 mg PO TID [facility] Last Admin: 03/30/18 17:04 Dose: 50 mg Trospium (Sanctura (Nf)) 20 mg PO BID [facility] Last Admin: 03/30/18 12:13 Dose: Not Given Vital Signs - 8 hr 03/30/18 03/30/18 03/30/18 11:02 14:56 17:04 Temperature 97.9 F 97.5 F Pulse Rate 80 67 Respiratory 20 16 16 Rate Blood Pressure 133/78 139/74 (mmHg) O2 Sat by Pulse 90 98 Oximetry Oxygen Devices in Use Now: None Eyes: No Scleral Icterus, PERRLA Ears/Nose/Mouth/Throat: NL Teeth, Lips, Gums Neck: NL Appearance and Movements; NL JVP Respiratory: Symmetrical Chest Expansion and Respiratory Effort, Clear to Auscultation Cardiovascular: NL Sounds; No Murmurs; No JVD, RRR Abdominal: NL Sounds; No Tenderness; No Distention Lymphatic: No Cervical Adenopathy Extremities: No Edema Skin: No Rash or Ulcers Neurological: Alert and Oriented x 3, - - R foot drop, mildly wide based gait with walker Result Diagrams: 03/30/18 06:15 03/30/18 06:15 Additional Lab and Data: B12 237, TSH 2.76, Folate > 200 Microbiology and Other Data: UA as above with +LE and 1+ WBC Diagnostic Imaging: MRI: chronic white matter changes, no acute issues, no strokes CTA: No significant stenosis, no VB disease Assess/Plan/Problems-Billing Assessment: 72 yo F with PMH HTN, UC on mesalamine, mixed incon, GERD, COPD, chronic neuropathy who is presenting for positional dizziness. Diagnosis most c/w BBPV, menieres given recent ear infection, less likely CVA given reassuring imaging. She has had a neg MRI and CTA. She is stable for d/c on 03/30/18 and elects to go home with and walker with PRN meclizine - Patient Problems (1) Vertigo Current Visit: No Status: Acute Code(s): R42 - DIZZINESS AND GIDDINESS SNOMED Code(s): 754446173 Comment: Appears to be BPPV, did have ear infection 2 weeks ago, reassuring head imaging -Work with PT, may benefit from vestibulocular therapy -meclizine PRN 25mg TID on d/c (2) HTN (hypertension) Current Visit: No Status: Acute Code(s): I10 - ESSENTIAL (PRIMARY) HYPERTENSION SNOMED Code(s): 69925254 Comment: Triamterene and HCTZ as a home med (3) Ulcerative colitis Current Visit: No Status: Chronic Code(s): K51.90 - ULCERATIVE COLITIS, UNSPECIFIED, WITHOUT COMPLICATIONS SNOMED Code(s): 36458278 Comment: Stable-continue mesalamine (4) Mixed incontinence Current Visit: No Status: Acute Code(s): N39.46 - MIXED INCONTINENCE SNOMED Code(s): 943186807 Comment: Home trosprium (5) Neuropathy Current Visit: No Status: Acute Code(s): G62.9 - POLYNEUROPATHY, UNSPECIFIED SNOMED Code(s): 225503261 Comment: On standing Pregablin (6) GERD (gastroesophageal reflux disease) Current Visit: No Status: Acute Code(s): K21.9 - GASTRO-ESOPHAGEAL REFLUX DISEASE WITHOUT ESOPHAGITIS SNOMED Code(s): 400731976 Comment: Remains on home PPI Status and Disposition: To home Disposition - Disposition Discharge To: Home Condition: Stable - 35 minutes spent in counseling done at the bedside Prescriptions: Meclizine TAB* [Antivert 12.5 TAB*] 25 mg PO Q8HR #20 tab Referrals: Lew Mcmanus MD [Primary Care Provider] - Additional Instructions: As tolerated, using walker until vertigo passes
[2018-03-30] MEDS ORDERED: Meclizine TAB* 12.5 MG PO SCH (22:00)
== END 2018-03-30 18:35 | disposition home or self-care (01) ==
LOC: ED 11:59 → MEDTELE 17:21
PROVIDERS: ADMIT Internal Medicine; ATTEND Internal Medicine
DX: R42 Dizziness and giddiness (principal); I10 Essential (primary) hypertension; R27.0 Ataxia, unspecified; I63.9 Cerebral infarction, unspecified; Z87.891 Personal history of nicotine dependence; K21.9 Gastro-esophageal reflux disease without esophagitis; J44.9 Chronic obstructive pulmonary disease, unspecified; K51.90 Ulcerative colitis, unspecified, without complications; N39.46 Mixed incontinence; G62.9 Polyneuropathy, unspecified
CPT/HCPCS: 36415; 70450; 70496; 70498; 70551; 71045; 80048; 80053; 80061; 81003; 81015; 82607; 82746; 83605; 84439; 84443; 84484; 85025; 85610; 87086; 93005; 96361; 96372; 99283; A9270-GY; G0378; G8978-GP-CK; G8979-GP-CI; G8987-GO-CJ; G8988-GO-CI; J1644; Q9967

== ENCOUNTER 2018-08-06 10:31 | Day surgery (SDC) | payer MEDICARE, OTHER ==
--- NOTE | 2018-07-29 16:46 | HP ---
Amended report to enter cosigning physician. HISTORY AND PHYSICAL: DATE OF OFFICE VISIT: 07/28/18 DATE OF SURGERY: 08/06/18 SURGEON: Dr. Stephy Lisa* (dictated by SAVANNAH Fritz). PROCEDURES: 1. Right carpal tunnel release. 2. Right index, middle, ring and small finger trigger finger release. 3. Right ulnar nerve decompression at the wrist. CHIEF COMPLAINT: Right hand pain and numbness. HISTORY OF PRESENT ILLNESS: Najma is here for a followup evaluation of her right hand. She is right-hand dominant. She is complaining of a lot of burning pain in her hand, tingling in all of her fingers, and stiffness in all of her fingers. She cannot make a full fist with her hand and it is causing her a lot of pain and she is having difficulty sleeping at night because of the tingling. She has had trigger finger injections in the past, but without any long-term relief. She is looking for a more permanent solution to this. PAST MEDICAL HISTORY: 1. Hypertension. 2. COPD. 3. Footdrop. 4. Lumbar spinal stenosis. 5. Lumbar spondylosis. PAST SURGICAL HISTORY: She had right thumb surgery at an unknown date, lumbar fusion in 2016, and other unknown back surgery around 2009. MEDICATIONS: 1. Omeprazole 20 mg 1 p.o. daily. 2. Multivitamin 1 p.o. daily. 3. Trospium chloride 20 mg p.o. daily. 4. Triamterene/hydrochlorothiazide 37.5 mg/25 mg 1 p.o. daily. 5. Zyrtec 10 mg 1 tab daily p.r.n. 6. Budesonide 3 mg 3 capsules p.o. once daily. 7. Lialda 1.2 g 1 p.o. daily. 8. Lyrica 50 mg 1 p.o. daily as needed. 9. Oxycodone HCL 15 mg 1 p.o. q.6 hours as needed for pain, MDD 4. ALLERGIES: To CODEINE, which results in hives. FAMILY HISTORY: Coronary artery disease, diabetes, and cancer. 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 She is a former smoker. She quit in 2016. She denies any current tobacco or recreational drug use. Denies any alcohol use. Has about 2 cups of coffee a day. REVIEW OF SYSTEMS: General: Negative for fevers, chills, night sweats, unexplained weight loss or gain. No known anesthesia problems. HEENT: Positive for vertigo. Negative for headache, lightheadedness, syncopal episodes , visual changes. Integumentary: Negative for abrasions, lesions, and open wounds. Cardiothoracic: Negative for hypertension, chest pain, palpitations, edema. Respiratory: Negative for shortness of breath with exertion, chronic cough, wheezing. GI: Negative for nausea, vomiting, diarrhea, constipation, GERD. : Positive for nocturia. Negative for urinary frequency, urgency, history of UTIs, kidney problems. Musculoskeletal: Positive for right hand pain, numbness, and tingling. Positive for chronic back pain. Negative for chronic neck pain or history of fractures. Neurological: Positive for numbness and tingling. Negative for history of stroke, poor balance. Negative for anxiety, depression. Endocrine: Negative for diabetes, thyroid issues. Hematologic: Negative for easy bruising, anemia, bleeding disorders, history of DVT. ID: Negative for history of MRSA, hep C, or HIV. PHYSICAL EXAMINATION GENERAL: Well-developed, well-nourished 72-year-old female, in no acute distress. She ambulates with a limp. VITAL SIGNS: Height 64 inches, weight 170 pounds, pulse 76, BP 138/88, BMI is 29.2. HEENT: NC/AT. PERRLA. EOMI. NECK: Supple. No palpable lymph nodes. Throat is clear. PULMONARY: Lungs are to clear to auscultation bilaterally. No wheezes. CARDIO: RRR. S1 and S2 heard. No murmurs, rubs, or gallops. No edema. ABDOMEN: Positive bowel sounds. Soft, nontender. NEUROLOGICAL: A and O x3. Cranial nerves II through XII intact. Sensation is intact to light touch. MUSCULOSKELETAL: Right upper extremity: On exam today, she has positive Tinel sign of the ulnar nerve at the wrist, median nerve of the wrist, and tenderness of the A1 pulleys of all her fingers, except her thumb. She cannot make a full tight fist. She can extend her fingers pretty well. Wrist motion is good. IMPRESSION: Right carpal tunnel syndrome and ulnar nerve compression of the wrist as well as trigger fingers of the index, middle, ring and small fingers. PLAN: The patient is scheduled to undergo right carpal tunnel release, right index; middle; ring and small trigger finger release, and a right ulnar nerve decompression at the wrist. The procedures as well as the risks and benefits were explained to the patient. She agrees to proceed. She will return to the office 10 days postop for followup and suture removal. A prescription for [place] was e- scribed to the patient's pharmacy for postoperative pain management. SAVANNAH RIVER [id number]/[facility] #: [id number] PHILL
[~2018-08-06 10:31] MED LIST changes: -Acetaminophen TAB* 325 MG PO PRN; +Buffered Lidocaine 1% SYRIN* 1 ML/SYRINGE INTRADERM ONE; -Buffered Lidocaine 1% SYRIN* 3 ML/SYR SYRINGE INTRADERM ONE; +Dexamethasone IV* 4 MG/ML 1 ML (4 MG) IV SLOW PU ONE; +Dexamethasone IV* 4 MG/ML 1 ML (4 MG) ONE; +Famotidine IV* 10 MG/ML 2 ML (20 mg) IV ONE; +Famotidine IV* 10 MG/ML 2 ML (20 mg) ONE; +Lactated Ringers 1000 ML Bag* 1,000 ML IV SCH
[2018-08-06] MEDS ORDERED: fentaNYL* 50 MCG/ML 2 ML VIAL (100 MCG VIAL) ONE (11:00)
[2018-08-06] MEDS ORDERED: Midazolam* 1 MG/ML 2 ML VIAL (2 MG) ONE (11:00)
[2018-08-06] MEDS ORDERED: Lidocaine 2% PF * 5 ML VIAL ONE (11:00)
[2018-08-06] MEDS ORDERED: Propofol* 10 MG/ML 20 ML BTL ONE (11:00)
[2018-08-06] MEDS ORDERED: Lidocaine 1% INJ* 10 MG/ML 30 ML SDV ONE (11:46)
[2018-08-06] MEDS ORDERED: oxyCODONE/Acetamin 5/325 MG* TAB PO PRN (11:49)
[2018-08-06] MEDS ORDERED: Naloxone* 0.4 MG/ML 1 ML VIAL IV PRN (11:49)
[2018-08-06] MEDS ORDERED: Ondansetron INJ* 2 MG/ML VIAL IV PRN (11:49)
[2018-08-06] MEDS ORDERED: HYDROcodone/ACETAMIN 5-325 MG* 1 TAB PO PRN (11:49)
[2018-08-06] MEDS ORDERED: Ketorolac INJ* 30 MG/ML 1 ML VIAL IV PRN (11:49)
[2018-08-06] MEDS ORDERED: fentaNYL* 50 MCG/ML 2 ML VIAL (100 MCG VIAL) IV PRN (11:49)
[2018-08-06 13:15] VITALS: BP 136/80
--- NOTE | 2018-08-06 21:57 | OP ---
CC: Dr. Lisa OPERATIVE NOTE: DATE OF OPERATION: 08/06/18 DATE OF : 45 SURGEON: Dr. Lisa. 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 PRE-OP DIAGNOSES: Trigger fingers, right index, long, ring, and small; carpal tunnel syndrome and ri ght ulnar nerve decompression of the wrist. POST-OP DIAGNOSES: Trigger fingers, right index, long, ring, and small; carpal tunnel syndrome and r ight ulnar nerve decompression of the wrist. OPERATIVE PROCEDURE: Trigger finger releases, right index, long, ring, and small fingers; carpal gustavo kala release and ulnar nerve decompression at the right wrist. ESTIMATED BLOOD LOSS: Zero. TOURNIQUET TIME: Approximately 30 minutes. INDICATIONS FOR PROCEDURE: Najma is a 72-year-old female who has locking and triggering of all of her fingers except her thumb. She also has numbness and tingling in the median nerve distribution of her right hand and the ulnar nerve distribution of her right hand. She presents for trigger finger releases of right index, long, ring, and small, and carpal tunnel release as well as ulnar nerve deco mpression at the right wrist. DESCRIPTION OF PROCEDURE: The patient was brought to the operating room, was given a sedation anesth etic and a local infiltration with a total of 20 cc of 1% plain lidocaine. The skin of her right piña d and forearm was prepped and draped in the usual sterile fashion. The hand and forearm were exsangu inated and the tourniquet elevated to 250 mmHg. A transverse incision was made centered over the A1 mela of the index and middle fingers. We dissected bluntly through the subcutaneous tissue down to the pulleys. Each mela was incised longitudinally, completely releasing the tendons, which were i n good condition. A second incision was made transverse centered over the A1 pulleys of the ring and small fingers. We dissected down to each A1 mela and it was completely incised longitudinally rel easing the tendons, which were in good condition. These incisions were irrigated and closed in inter rupted fashion with 4-0 nylon suture. Next, the longitudinal incision was made with a zig-zag across the wrist creases and we dissected sharply through the subcutaneous tissue down to the transverse ca rpal ligament. The ligament was divided sharply with a knife and then more proximally with the sciss ors. The nerve was dissected free from the surrounding tissues and there was an area of moderate com pression at the mid portion of the ligament. The ulnar nerve was located more proximally in the wris t and then traced through Guyon's canal and completely released. The wound was irrigated and the ski n edges reapproximated with 4-0 nylon suture. The wounds were dressed with Xeroform, 4x4's, Webril, and an Jacky wrap. The patient tolerated the procedure well, was brought to the recovery room in good condition. [id number]/[facility] #: [id number]
== END 2018-08-06 13:45 | disposition home or self-care (01) ==
LOC: OREAST 10:31
PROVIDERS: ATTEND Orthopaedic Surgery
DX: M65.321 Trigger finger, right index finger (principal); M65.331 Trigger finger, right middle finger; M65.341 Trigger finger, right ring finger; M65.351 Trigger finger, right little finger; G56.01 Carpal tunnel syndrome, right upper limb; I10 Essential (primary) hypertension; J44.9 Chronic obstructive pulmonary disease, unspecified; M21.379 Foot drop, unspecified foot
CPT/HCPCS: J1100; J2250; J2704; J3010